=== PATIENT | female | born 1955 | race Caucasian/White ===

== ENCOUNTER 2017-04-30 15:10 | Inpatient (IN) | payer OTHER ==
[2017-04-30] MEDS: HYDROmorphONE 1 MG/ML SYG IV (19:47)
[2017-04-30] MEDS: SOD CHLORIDE 0.9% 1,000 ML IV ×2 (19:47→23:05)
[2017-04-30] MEDS: ONDANSETRON 4 MG INJ IV (19:47)
[2017-04-30 19:51] LABS: ADD MAN DIFF? NO
[2017-04-30 19:53] LABS: BASOPHIL # 0.1 10^3/ul (0.0-0.1); BASOPHILS % 0.5 % (0.0-2.0); EOSINOPHILS % 0.2 % (0.0-7.0); HEMATOCRIT 46.7 % (37.0-47.0); HEMOGLOBIN 15.2 g/dl (12.0-16.0); LYMPHOCYTES # 1.3 10^3/ul (0.8-2.9); MEAN CORPUSCULAR HEMOGLOBIN 27.3 pg (29.0-33.0); MEAN CORPUSCULAR HGB CONC 32.5 g/dl (32.0-37.0); MONOCYTE # 1.1 10^3/ul (0.3-0.9); MONOCYTES % 9.5 % (0.0-11.0); NEUTROPHIL # 9.4 10^3/ul (1.6-7.5); NEUTROPHILS % 78.2 % (39.0-77.0); PLATELET COUNT 604 10^3/UL (140-415); RED BLOOD COUNT 5.56 10^6/ul (4.20-5.40); RED CELL DISTRIBUTION WIDTH 13.3 % (11.5-14.5)
[2017-04-30 20:07] LABS: ADD UMIC YES; UR ASCORBIC ACID NEGATIVE (NEGATIVE); UR BILIRUBIN (Dip) 1+ mg/dL (NEGATIVE); UR BLOOD (Dip) NEGATIVE (NEGATIVE); UR CLARITY CLOUDY (CLEAR); UR COLOR AMBER (YELLOW); UR GLUCOSE (Dip) NEGATIVE (NEGATIVE); UR HYALINE CAST FEW /HPF (NONE SEEN); UR KETONES (Dip) 1+ mg/dL (NEGATIVE); UR LEUKOCYTE ESTERASE (Dip) 1+ Leu/ul (NEGATIVE); UR MUCUS MANY /HPF (NONE SEEN); UR NITRITE (Dip) NEGATIVE (NEGATIVE); UR RBC 6 /HPF (0-5); UR SPECIFIC GRAVITY (Dip) 1.025 (1.003-1.030); UR SQUAMOUS EPITHELIAL CELL FEW /HPF (FEW); UR TOTAL PROTEIN (Dip) 1+ mg/dl (NEGATIVE); UR UROBILINOGEN (Dip) 2+ mg/dL (NEGATIVE); UR WBC 44 /HPF (0-5)
[2017-04-30 20:17] LABS: ALANINE AMINOTRANSFERASE 11 IU/L (13-69); ALBUMIN 4.1 g/dl (3.3-4.9); ALBUMIN/GLOBULIN RATIO 0.93; ALKALINE PHOSPHATASE 72 IU/L (42-121); ANION GAP 25 (8-16); ASPARTATE AMINO TRANSFERASE 45 IU/L (15-46); BILIRUBIN,INDIRECT 0.4 mg/dl (0-1.1); BILIRUBIN,TOTAL 0.4 mg/dl (0.2-1.3); BLOOD UREA NITROGEN 26 mg/dl (7-20); CALCIUM 9.8 mg/dl (8.4-10.2); CARBON DIOXIDE 24 mmol/L (21-31); CHLORIDE 91 mmol/L (97-110); GLUCOSE 112 mg/dl (70-220); LIPASE 123 U/L (23-300); POTASSIUM 4.2 mmol/L (3.5-5.1); SODIUM 136 mmol/L (135-144); TOTAL PROTEIN 8.5 g/dl (6.1-8.1)
[2017-04-30] MEDS ORDERED: METOCLOPRAMIDE 10 MG INJ (20:37)
[2017-04-30] MEDS: METOCLOPRAMIDE 10 MG INJ IV (20:49)
[2017-04-30] MEDS: IODIXANOL LOCM 100 ML BTL (21:04)
[2017-04-30] MEDS: SOD CHLORIDE 0.9% 100 ML (21:04)
[2017-04-30] MEDS: PROCHLORPERAZINE 10 MG INJ IV (22:09)
[2017-04-30] MEDS ORDERED: morphine 2 MG INJ IV (23:00)
[2017-04-30] MEDS ORDERED: ONDANSETRON 4 MG INJ IV (23:00)
[2017-04-30] MEDS ORDERED: ACETAMINOPHEN 325 MG TAB PO (23:00)
[2017-05-01] MEDS: D5W-0.45 NACL + KCL 20 MEQ 1,000 ML IV ×4 (03:18→21:33)
[2017-05-01] MEDS: PANTOPRAZOLE 40 MG INJ IV (05:37)
[2017-05-01] MEDS: METOCLOPRAMIDE 10 MG INJ IV ×4 (05:37→18:17)
[2017-05-01 06:17] LABS: ADD MAN DIFF? NO
[2017-05-01 06:38] LABS: WHITE BLOOD COUNT 9.3 10^3/ul (4.8-10.8)
[2017-05-01 06:38] LABS: BASOPHILS % 0.4 % (0.0-2.0); EOSINOPHILS % 0.3 % (0.0-7.0); HEMATOCRIT 39.9 % (37.0-47.0); HEMOGLOBIN 12.8 g/dl (12.0-16.0); LYMPHOCYTES % 10.2 % (15.0-51.0); MEAN CORPUSCULAR HEMOGLOBIN 27.4 pg (29.0-33.0); MEAN CORPUSCULAR HGB CONC 32.1 g/dl (32.0-37.0); MEAN CORPUSCULAR VOLUME 85.4 fl (82.0-101.0); MEAN PLATELET VOLUME 10.9 fl (7.4-10.4); MONOCYTES % 11.2 % (0.0-11.0); NEUTROPHIL # 7.2 10^3/ul (1.6-7.5); NEUTROPHILS % 77.4 % (39.0-77.0); PLATELET COUNT 565 10^3/UL (140-415); RED BLOOD COUNT 4.67 10^6/ul (4.20-5.40); RED CELL DISTRIBUTION WIDTH 13.5 % (11.5-14.5)
[2017-05-01 07:02] LABS: ANION GAP 19 (8-16); BLOOD UREA NITROGEN 24 mg/dl (7-20); CALCIUM 8.9 mg/dl (8.4-10.2); CARBON DIOXIDE 28 mmol/L (21-31); CHLORIDE 95 mmol/L (97-110); GLUCOSE 122 mg/dl (70-220); POTASSIUM 3.5 mmol/L (3.5-5.1); SODIUM 138 mmol/L (135-144)
[2017-05-01] MEDS: ONDANSETRON 4 MG INJ IV (16:37)
[2017-05-01] MEDS: HYDROmorphONE 0.5 MG/0.5 ML SYG IV ×2 (16:38→21:25)
[2017-05-02] MEDS: METOCLOPRAMIDE 10 MG INJ IV ×4 (01:16→19:01)
[2017-05-02] MEDS: HYDROmorphONE 0.5 MG/0.5 ML SYG IV ×4 (05:27→19:44)
[2017-05-02] MEDS: PANTOPRAZOLE 40 MG INJ IV (05:28)
[2017-05-02 06:27] LABS: ADD MAN DIFF? NO
[2017-05-02] MEDS: D5W-0.45 NACL + KCL 20 MEQ 1,000 ML IV ×2 (06:28→17:35)
[2017-05-02 06:31] LABS: BASOPHILS % 0.6 % (0.0-2.0); EOSINOPHILS # 0.1 10^3/ul (0.0-0.5); HEMATOCRIT 39.7 % (37.0-47.0); HEMOGLOBIN 12.6 g/dl (12.0-16.0); LYMPHOCYTES # 0.7 10^3/ul (0.8-2.9); LYMPHOCYTES % 9.9 % (15.0-51.0); MEAN CORPUSCULAR HEMOGLOBIN 27.3 pg (29.0-33.0); MEAN CORPUSCULAR HGB CONC 31.7 g/dl (32.0-37.0); MEAN CORPUSCULAR VOLUME 86.1 fl (82.0-101.0); MEAN PLATELET VOLUME 11.1 fl (7.4-10.4); MONOCYTE # 0.9 10^3/ul (0.3-0.9); NEUTROPHIL # 5.5 10^3/ul (1.6-7.5); NEUTROPHILS % 76.1 % (39.0-77.0); PLATELET COUNT 512 10^3/UL (140-415); RED BLOOD COUNT 4.61 10^6/ul (4.20-5.40); RED CELL DISTRIBUTION WIDTH 13.5 % (11.5-14.5)
[2017-05-02 06:31] LABS: WHITE BLOOD COUNT 7.3 10^3/ul (4.8-10.8)
[2017-05-02 06:54] LABS: ANION GAP 12 (8-16); BLOOD UREA NITROGEN 16 mg/dl (7-20); CALCIUM 8.8 mg/dl (8.4-10.2); CARBON DIOXIDE 30 mmol/L (21-31); CHLORIDE 99 mmol/L (97-110); CREATININE 0.96 mg/dl (0.44-1.00); GLUCOSE 131 mg/dl (70-220); POTASSIUM 3.6 mmol/L (3.5-5.1); SODIUM 137 mmol/L (135-144)
[2017-05-02] MEDS: ONDANSETRON 4 MG INJ IV (15:21)
[2017-05-03] MEDS: METOCLOPRAMIDE 10 MG INJ IV ×4 (00:11→18:35)
[2017-05-03] MEDS: HYDROmorphONE 0.5 MG/0.5 ML SYG IV ×2 (02:59→06:50)
[2017-05-03] MEDS: D5W-0.45 NACL + KCL 20 MEQ 1,000 ML IV ×3 (04:04→13:39)
[2017-05-03 06:20] LABS: ADD MAN DIFF? NO
[2017-05-03 06:30] LABS: WHITE BLOOD COUNT 7.7 10^3/ul (4.8-10.8)
[2017-05-03 06:30] LABS: BASOPHIL # 0.1 10^3/ul (0.0-0.1); BASOPHILS % 0.8 % (0.0-2.0); EOSINOPHILS # 0.1 10^3/ul (0.0-0.5); EOSINOPHILS % 1.6 % (0.0-7.0); HEMOGLOBIN 12.7 g/dl (12.0-16.0); LYMPHOCYTES % 12.4 % (15.0-51.0); MEAN CORPUSCULAR HEMOGLOBIN 27.3 pg (29.0-33.0); MEAN CORPUSCULAR HGB CONC 31.8 g/dl (32.0-37.0); MEAN PLATELET VOLUME 10.8 fl (7.4-10.4); MONOCYTES % 13.1 % (0.0-11.0); NEUTROPHIL # 5.5 10^3/ul (1.6-7.5); NEUTROPHILS % 71.6 % (39.0-77.0); PLATELET COUNT 525 10^3/UL (140-415); RED BLOOD COUNT 4.65 10^6/ul (4.20-5.40); RED CELL DISTRIBUTION WIDTH 13.7 % (11.5-14.5)
[2017-05-03 07:05] LABS: ANION GAP 12 (8-16); BLOOD UREA NITROGEN 12 mg/dl (7-20); CALCIUM 8.9 mg/dl (8.4-10.2); CARBON DIOXIDE 26 mmol/L (21-31); CHLORIDE 104 mmol/L (97-110); CREATININE 0.84 mg/dl (0.44-1.00); GLUCOSE 128 mg/dl (70-220); POTASSIUM 3.9 mmol/L (3.5-5.1); SODIUM 138 mmol/L (135-144)
[2017-05-03] MEDS: FAMOTIDINE 20 MG INJ IV ×2 (08:47→20:05)
[2017-05-03] MEDS: HYDROmorphONE 1 MG/ML SYG IV ×3 (11:36→20:07)
[2017-05-03] MEDS: LORAZEPAM 2 MG INJ IV (20:05)
[2017-05-03] MEDS: ONDANSETRON 4 MG INJ IV (20:09)
[2017-05-04] MEDS: METOCLOPRAMIDE 10 MG INJ IV ×4 (00:12→17:56)
[2017-05-04] MEDS: D5W-0.45 NACL + KCL 20 MEQ 1,000 ML IV ×3 (00:12→20:51)
[2017-05-04 06:05] LABS: ADD MAN DIFF? NO
[2017-05-04 06:33] LABS: ANION GAP 11 (8-16); BLOOD UREA NITROGEN 11 mg/dl (7-20); CALCIUM 9.1 mg/dl (8.4-10.2); CARBON DIOXIDE 26 mmol/L (21-31); CHLORIDE 104 mmol/L (97-110); CREATININE 0.92 mg/dl (0.44-1.00); GLUCOSE 120 mg/dl (70-220); POTASSIUM 4.5 mmol/L (3.5-5.1); SODIUM 136 mmol/L (135-144)
[2017-05-04 09:06] LABS: WHITE BLOOD COUNT 8.5 10^3/ul (4.8-10.8)
[2017-05-04 09:06] LABS: BASOPHIL # 0.1 10^3/ul (0.0-0.1); BASOPHILS % 0.7 % (0.0-2.0); EOSINOPHILS # 0.1 10^3/ul (0.0-0.5); EOSINOPHILS % 1.6 % (0.0-7.0); HEMOGLOBIN 12.9 g/dl (12.0-16.0); LYMPHOCYTES # 0.9 10^3/ul (0.8-2.9); MEAN CORPUSCULAR HEMOGLOBIN 27.5 pg (29.0-33.0); MEAN CORPUSCULAR HGB CONC 31.5 g/dl (32.0-37.0); MEAN CORPUSCULAR VOLUME 87.4 fl (82.0-101.0); MEAN PLATELET VOLUME 11.2 fl (7.4-10.4); MONOCYTES % 12.2 % (0.0-11.0); NEUTROPHIL # 6.3 10^3/ul (1.6-7.5); PLATELET COUNT 507 10^3/UL (140-415); RED BLOOD COUNT 4.69 10^6/ul (4.20-5.40); RED CELL DISTRIBUTION WIDTH 13.9 % (11.5-14.5)
[2017-05-04] MEDS: FAMOTIDINE 20 MG INJ IV ×2 (09:15→20:51)
[2017-05-04] MEDS: ENOXAPARIN 30 MG/0.3 ML SYG SC (09:26)
[2017-05-04] MEDS: HYDROmorphONE 1 MG/ML SYG IV ×3 (11:18→22:22)
[2017-05-05] MEDS: METOCLOPRAMIDE 10 MG INJ IV ×5 (00:09→23:47)
[2017-05-05] MEDS: HYDROmorphONE 1 MG/ML SYG IV ×5 (04:34→22:23)
[2017-05-05 05:18] LABS: ADD MAN DIFF? NO
[2017-05-05 05:23] LABS: BASOPHIL # 0.1 10^3/ul (0.0-0.1); BASOPHILS % 0.8 % (0.0-2.0); EOSINOPHILS # 0.1 10^3/ul (0.0-0.5); EOSINOPHILS % 1.7 % (0.0-7.0); HEMATOCRIT 39.5 % (37.0-47.0); HEMOGLOBIN 12.3 g/dl (12.0-16.0); LYMPHOCYTES # 0.8 10^3/ul (0.8-2.9); LYMPHOCYTES % 10.5 % (15.0-51.0); MEAN CORPUSCULAR HEMOGLOBIN 27.3 pg (29.0-33.0); MEAN CORPUSCULAR HGB CONC 31.1 g/dl (32.0-37.0); MEAN CORPUSCULAR VOLUME 87.8 fl (82.0-101.0); MEAN PLATELET VOLUME 10.8 fl (7.4-10.4); MONOCYTE # 1.1 10^3/ul (0.3-0.9); MONOCYTES % 13.7 % (0.0-11.0); NEUTROPHIL # 5.6 10^3/ul (1.6-7.5); NEUTROPHILS % 72.8 % (39.0-77.0); PLATELET COUNT 445 10^3/UL (140-415); RED CELL DISTRIBUTION WIDTH 14.2 % (11.5-14.5)
[2017-05-05 05:23] LABS: WHITE BLOOD COUNT 7.7 10^3/ul (4.8-10.8)
[2017-05-05 06:09] LABS: ANION GAP 11 (8-16); BLOOD UREA NITROGEN 10 mg/dl (7-20); CALCIUM 9.2 mg/dl (8.4-10.2); CARBON DIOXIDE 28 mmol/L (21-31); CHLORIDE 104 mmol/L (97-110); CREATININE 0.92 mg/dl (0.44-1.00); GLUCOSE 115 mg/dl (70-220); POTASSIUM 5.2 mmol/L (3.5-5.1); SODIUM 138 mmol/L (135-144)
[2017-05-05] MEDS: D5W-0.45 NACL + KCL 20 MEQ 1,000 ML IV ×3 (06:28→16:26)
[2017-05-05] MEDS: FAMOTIDINE 20 MG INJ IV ×2 (08:38→19:55)
[2017-05-05] MEDS: ENOXAPARIN 30 MG/0.3 ML SYG SC (08:46)
[2017-05-05] MEDS: HYDROmorphONE 0.5 MG/0.5 ML SYG IV (14:42)
[2017-05-05] MEDS: LORAZEPAM 2 MG INJ IV (22:23)
[2017-05-06] MEDS: METOCLOPRAMIDE 10 MG INJ IV ×3 (05:30→17:51)
[2017-05-06] MEDS: D5W-0.45 NACL + KCL 20 MEQ 1,000 ML IV (05:30)
[2017-05-06] MEDS: FAMOTIDINE 20 MG INJ IV ×2 (09:13→20:32)
[2017-05-06] MEDS: HYDROmorphONE 1 MG/ML SYG IV ×4 (09:13→21:54)
[2017-05-06] MEDS: ENOXAPARIN 30 MG/0.3 ML SYG SC (09:13)
[2017-05-06] MEDS: DEXTROSE 5%-0.45% NACL 1,000 ML IV (17:51)
[2017-05-06 20:03] LABS: ANION GAP 13 (8-16); BLOOD UREA NITROGEN 9 mg/dl (7-20); CALCIUM 9.1 mg/dl (8.4-10.2); CARBON DIOXIDE 22 mmol/L (21-31); CHLORIDE 105 mmol/L (97-110); CREATININE 0.81 mg/dl (0.44-1.00); GLUCOSE 105 mg/dl (70-220); POTASSIUM 5.9 mmol/L (3.5-5.1); SODIUM 134 mmol/L (135-144)
[2017-05-07] MEDS: LORAZEPAM 2 MG INJ IV (02:39)
[2017-05-07] MEDS: HYDROmorphONE 1 MG/ML SYG IV ×3 (05:14→19:56)
[2017-05-07] MEDS: METOCLOPRAMIDE 10 MG INJ IV ×4 (05:14→18:10)
[2017-05-07 05:23] LABS: ADD MAN DIFF? NO
[2017-05-07 05:28] LABS: BASOPHIL # 0.1 10^3/ul (0.0-0.1); BASOPHILS % 0.6 % (0.0-2.0); EOSINOPHILS # 0.1 10^3/ul (0.0-0.5); EOSINOPHILS % 1.1 % (0.0-7.0); HEMATOCRIT 37.8 % (37.0-47.0); LYMPHOCYTES # 0.6 10^3/ul (0.8-2.9); LYMPHOCYTES % 6.7 % (15.0-51.0); MEAN CORPUSCULAR HEMOGLOBIN 27.2 pg (29.0-33.0); MEAN CORPUSCULAR HGB CONC 31.7 g/dl (32.0-37.0); MEAN CORPUSCULAR VOLUME 85.7 fl (82.0-101.0); MONOCYTE # 1.2 10^3/ul (0.3-0.9); MONOCYTES % 12.9 % (0.0-11.0); NEUTROPHIL # 7.3 10^3/ul (1.6-7.5); NEUTROPHILS % 78.4 % (39.0-77.0); PLATELET COUNT 457 10^3/UL (140-415); RED BLOOD COUNT 4.41 10^6/ul (4.20-5.40); RED CELL DISTRIBUTION WIDTH 13.8 % (11.5-14.5)
[2017-05-07 05:28] LABS: WHITE BLOOD COUNT 9.4 10^3/ul (4.8-10.8)
[2017-05-07 05:49] LABS: INR 1.12; PROTIME 14.6 Sec (11.9-14.9); PT RATIO 1.1
[2017-05-07 06:16] LABS: ALANINE AMINOTRANSFERASE 32 IU/L (13-69); ALBUMIN 2.6 g/dl (3.3-4.9); ALBUMIN/GLOBULIN RATIO 0.72; ALKALINE PHOSPHATASE 72 IU/L (42-121); ANION GAP 11 (8-16); ASPARTATE AMINO TRANSFERASE 28 IU/L (15-46); BILIRUBIN,INDIRECT 0.3 mg/dl (0-1.1); BILIRUBIN,TOTAL 0.3 mg/dl (0.2-1.3); BLOOD UREA NITROGEN 9 mg/dl (7-20); CALCIUM 9.3 mg/dl (8.4-10.2); CARBON DIOXIDE 25 mmol/L (21-31); CHLORIDE 104 mmol/L (97-110); CREATININE 0.87 mg/dl (0.44-1.00); GLUCOSE 105 mg/dl (70-220); POTASSIUM 5.1 mmol/L (3.5-5.1); SODIUM 135 mmol/L (135-144); TOTAL PROTEIN 6.2 g/dl (6.1-8.1)
[2017-05-07] MEDS: ENOXAPARIN 30 MG/0.3 ML SYG SC (08:34)
[2017-05-07] MEDS: PEG/ELECTROLYTES 4L BTL PO (08:36)
[2017-05-07] MEDS: FAMOTIDINE 20 MG INJ IV ×2 (08:44→19:57)
[2017-05-07] MEDS: DEXTROSE 5%-0.45% NACL 1,000 ML IV ×2 (10:50→14:04)
[2017-05-07] MEDS: ONDANSETRON 4 MG INJ IV (19:56)
[2017-05-08] MEDS: DEXTROSE 5%-0.45% NACL 1,000 ML IV ×2 (00:33→16:31)
[2017-05-08] MEDS: METOCLOPRAMIDE 10 MG INJ IV ×4 (00:33→17:29)
[2017-05-08] MEDS: LORAZEPAM 2 MG INJ IV (00:45)
[2017-05-08] MEDS: ONDANSETRON 4 MG INJ IV (03:16)
[2017-05-08 05:04] LABS: ADD MAN DIFF? NO
[2017-05-08 05:17] LABS: WHITE BLOOD COUNT 9.6 10^3/ul (4.8-10.8)
[2017-05-08 05:17] LABS: ABNORMAL IP MESSAGE 1; BASOPHILS % 0.4 % (0.0-2.0); EOSINOPHILS # 0.1 10^3/ul (0.0-0.5); EOSINOPHILS % 0.8 % (0.0-7.0); HEMATOCRIT 37.6 % (37.0-47.0); HEMOGLOBIN 12.1 g/dl (12.0-16.0); LYMPHOCYTES # 0.8 10^3/ul (0.8-2.9); MEAN CORPUSCULAR HEMOGLOBIN 27.3 pg (29.0-33.0); MEAN CORPUSCULAR HGB CONC 32.2 g/dl (32.0-37.0); MEAN CORPUSCULAR VOLUME 84.9 fl (82.0-101.0); MONOCYTE # 1.5 10^3/ul (0.3-0.9); MONOCYTES % 15.9 % (0.0-11.0); NEUTROPHIL # 7.1 10^3/ul (1.6-7.5); NEUTROPHILS % 74.5 % (39.0-77.0); PLATELET COUNT 443 10^3/UL (140-415); RED BLOOD COUNT 4.43 10^6/ul (4.20-5.40); RED CELL DISTRIBUTION WIDTH 14.1 % (11.5-14.5)
[2017-05-08 05:18] LABS: PLATELET COUNT 447 10^3/UL (140-415)
[2017-05-08 05:25] LABS: POSITIVE DIFF @See below
[2017-05-08] MEDS ORDERED: VITAMIN A & D 5 GM OINT PACKET TOP (05:26)
[2017-05-08 05:54] LABS: ANION GAP 12 (8-16); BLOOD UREA NITROGEN 10 mg/dl (7-20); CALCIUM 9.2 mg/dl (8.4-10.2); CARBON DIOXIDE 25 mmol/L (21-31); CHLORIDE 104 mmol/L (97-110); CREATININE 1.02 mg/dl (0.44-1.00); GLUCOSE 105 mg/dl (70-220); POTASSIUM 5.2 mmol/L (3.5-5.1); SODIUM 136 mmol/L (135-144)
[2017-05-08] MEDS: HYDROmorphONE 1 MG/ML SYG IV ×2 (05:56→17:27)
[2017-05-08 06:05] LABS: INR 1.16; PT RATIO 1.2
[2017-05-08 06:06] LABS: PARTIAL THROMBOPLASTIN TIME 36.9 Sec (25.0-35.0); THROMBIN TIME 15.1 SEC (13.8-19.1)
[2017-05-08] MEDS: FAMOTIDINE 20 MG INJ IV ×2 (12:10→21:00)
[2017-05-08] MEDS: ENOXAPARIN 30 MG/0.3 ML SYG SC (12:13)
[2017-05-09 05:18] LABS: ADD MAN DIFF? NO
[2017-05-09 05:22] LABS: BASOPHIL # 0.1 10^3/ul (0.0-0.1); BASOPHILS % 0.5 % (0.0-2.0); EOSINOPHILS # 0.1 10^3/ul (0.0-0.5); EOSINOPHILS % 0.7 % (0.0-7.0); HEMATOCRIT 37.5 % (37.0-47.0); LYMPHOCYTES # 0.7 10^3/ul (0.8-2.9); LYMPHOCYTES % 7.5 % (15.0-51.0); MEAN CORPUSCULAR HEMOGLOBIN 27.2 pg (29.0-33.0); MEAN PLATELET VOLUME 10.7 fl (7.4-10.4); MONOCYTE # 1.2 10^3/ul (0.3-0.9); MONOCYTES % 12.6 % (0.0-11.0); NEUTROPHIL # 7.7 10^3/ul (1.6-7.5); NEUTROPHILS % 78.3 % (39.0-77.0); PLATELET COUNT 444 10^3/UL (140-415); RED BLOOD COUNT 4.41 10^6/ul (4.20-5.40); RED CELL DISTRIBUTION WIDTH 14.1 % (11.5-14.5)
[2017-05-09 05:22] LABS: WHITE BLOOD COUNT 9.9 10^3/ul (4.8-10.8)
[2017-05-09 05:47] LABS: ANION GAP 16 (8-16); BLOOD UREA NITROGEN 12 mg/dl (7-20); CALCIUM 9.3 mg/dl (8.4-10.2); CARBON DIOXIDE 21 mmol/L (21-31); CHLORIDE 104 mmol/L (97-110); CREATININE 0.91 mg/dl (0.44-1.00); GLUCOSE 91 mg/dl (70-220); POTASSIUM 4.8 mmol/L (3.5-5.1); SODIUM 136 mmol/L (135-144)
[2017-05-09] MEDS: HYDROmorphONE 1 MG/ML SYG IV (06:17)
[2017-05-09] MEDS: METOCLOPRAMIDE 10 MG INJ IV ×5 (06:17→23:07)
[2017-05-09] MEDS: FAMOTIDINE 20 MG INJ IV ×2 (10:32→20:22)
[2017-05-09] MEDS: ENOXAPARIN 30 MG/0.3 ML SYG SC (10:37)
[2017-05-09] MEDS: DEXTROSE 5%-0.9% NACL 1,000 ML IV (20:22)
[2017-05-10 01:24] LABS: INR 1.22; PROTIME 15.6 Sec (11.9-14.9); PT RATIO 1.2
[2017-05-10 05:09] LABS: ADD MAN DIFF? NO
[2017-05-10 05:12] LABS: BASOPHILS % 0.4 % (0.0-2.0); EOSINOPHILS % 0.4 % (0.0-7.0); HEMATOCRIT 38.7 % (37.0-47.0); HEMOGLOBIN 12.1 g/dl (12.0-16.0); LYMPHOCYTES # 0.8 10^3/ul (0.8-2.9); LYMPHOCYTES % 8.3 % (15.0-51.0); MEAN CORPUSCULAR HEMOGLOBIN 26.7 pg (29.0-33.0); MEAN CORPUSCULAR HGB CONC 31.3 g/dl (32.0-37.0); MEAN CORPUSCULAR VOLUME 85.2 fl (82.0-101.0); MEAN PLATELET VOLUME 11.1 fl (7.4-10.4); MONOCYTE # 1.3 10^3/ul (0.3-0.9); MONOCYTES % 13.1 % (0.0-11.0); NEUTROPHIL # 7.8 10^3/ul (1.6-7.5); NEUTROPHILS % 77.4 % (39.0-77.0); PLATELET COUNT 447 10^3/UL (140-415); RED BLOOD COUNT 4.54 10^6/ul (4.20-5.40); RED CELL DISTRIBUTION WIDTH 14.3 % (11.5-14.5)
[2017-05-10] MEDS: METOCLOPRAMIDE 10 MG INJ IV ×2 (05:35→12:00)
[2017-05-10 05:43] LABS: ANION GAP 15 (8-16); BLOOD UREA NITROGEN 13 mg/dl (7-20); CALCIUM 9.2 mg/dl (8.4-10.2); CARBON DIOXIDE 23 mmol/L (21-31); CHLORIDE 106 mmol/L (97-110); CREATININE 0.86 mg/dl (0.44-1.00); GLUCOSE 108 mg/dl (70-220); POTASSIUM 4.9 mmol/L (3.5-5.1); SODIUM 139 mmol/L (135-144)
[2017-05-10] MEDS ORDERED: CEFAZOLIN 1 GM INJ (07:00)
[2017-05-10] MEDS: ENOXAPARIN 30 MG/0.3 ML SYG SC (09:00)
[2017-05-10] MEDS ORDERED: METOCLOPRAMIDE 10 MG INJ IV ×2 (09:00→16:00)
[2017-05-10] MEDS ORDERED: hydrALAzine 20 MG INJ IV (09:00)
[2017-05-10] MEDS ORDERED: LABETALOL HCL 20MG INJ IV (09:00)
[2017-05-10] MEDS ORDERED: DIPHENHYDRAMINE 50 MG INJ IV ×2 (09:00→16:00)
[2017-05-10] MEDS ORDERED: ONDANSETRON 4 MG INJ IV (09:00)
[2017-05-10] MEDS ORDERED: FENTAnyl 50 MCG/ML VIAL IV (09:00)
[2017-05-10] MEDS: FAMOTIDINE 20 MG INJ IV ×2 (09:01→22:48)
[2017-05-10] MEDS ORDERED: VASOPRESSIN 20 UNITS INJ (09:05)
[2017-05-10] MEDS ORDERED: METHYLENE BLUE 1% 10 ML INJ (09:54)
[2017-05-10] MEDS ORDERED: MIDAZOLAM 1 MG/ML 2 ML INJ ×3 (10:13→15:25)
[2017-05-10] MEDS ORDERED: morphine SULFATE/PF (10 MG/10 ML) INJ (10:15)
[2017-05-10] MEDS ORDERED: PHENYLephrine (100 MCG/ML) 5ML SYG ×3 (10:16→12:25)
[2017-05-10] MEDS: DEXTROSE 5%-0.9% NACL 1,000 ML IV (11:18)
[2017-05-10] MEDS ORDERED: FUROSEMIDE 20 MG INJ (13:02)
[2017-05-10] MEDS: HEMOSTATIC MATRIX SYG ZFS (14:30)
[2017-05-10] MEDS: THROMBIN 5000 UNIT VIAL (14:30)
[2017-05-10] MEDS ORDERED: LIDOCAINE 2% (SDV) 5 ML INJ (15:27)
[2017-05-10] MEDS ORDERED: ROCURONIUM 50 MG INJ (15:27)
[2017-05-10] MEDS ORDERED: PROPOFOL 20 ML (15:27)
[2017-05-10] MEDS ORDERED: CEFAZOLIN 1 GM in SOD CHLORIDE 0.9% 100 ML IVPB (15:30)
[2017-05-10] MEDS ORDERED: NALOXONE (0.4 MG/ML) INJ IV (16:00)
[2017-05-10] MEDS ORDERED: HYDROmorphONE (0.2 MG/ML) 10ML SYG IV (16:00)
[2017-05-10] MEDS ORDERED: metroNIDAZOLE 500 MG/NS (PMX) 100 ML IVPB (16:22)
[2017-05-10] MEDS: CEFAZOLIN 1 GM/50 ML (PMX) 50 ML IVPB (16:39)
[2017-05-10] MEDS: MEPERIDINE 25 MG INJ IV (16:50)
[2017-05-10] MEDS: metroNIDAZOLE 500 MG/NS (PMX) 100 ML IVPB (16:52)
[2017-05-10] MEDS ORDERED: CEFAZOLIN 1 GM/50 ML (PMX) 50 ML IVPB (17:00)
[2017-05-10] MEDS: ALBUMIN HUMAN 5% 250 ML IV ×3 (17:02→23:06)
[2017-05-10 17:17] LABS: ADD MAN DIFF? NO
[2017-05-10 17:25] LABS: BASOPHILS % 0.2 % (0.0-2.0); HEMATOCRIT 38.6 % (37.0-47.0); HEMOGLOBIN 12.6 g/dl (12.0-16.0); LYMPHOCYTES # 0.6 10^3/ul (0.8-2.9); LYMPHOCYTES % 5.1 % (15.0-51.0); MEAN CORPUSCULAR HEMOGLOBIN 27.4 pg (29.0-33.0); MEAN CORPUSCULAR HGB CONC 32.6 g/dl (32.0-37.0); MEAN CORPUSCULAR VOLUME 83.9 fl (82.0-101.0); MONOCYTE # 1.2 10^3/ul (0.3-0.9); MONOCYTES % 9.6 % (0.0-11.0); NEUTROPHIL # 10.2 10^3/ul (1.6-7.5); NEUTROPHILS % 84.6 % (39.0-77.0); PLATELET COUNT 306 10^3/UL (140-415); RED CELL DISTRIBUTION WIDTH 14.3 % (11.5-14.5)
[2017-05-10 17:43] LABS: ANION GAP 8 (8-16); BLOOD UREA NITROGEN 11 mg/dl (7-20); CALCIUM 7.2 mg/dl (8.4-10.2); CARBON DIOXIDE 25 mmol/L (21-31); CHLORIDE 107 mmol/L (97-110); CREATININE 0.65 mg/dl (0.44-1.00); GLUCOSE 167 mg/dl (70-220); POTASSIUM 3.5 mmol/L (3.5-5.1); SODIUM 136 mmol/L (135-144)
[2017-05-10] MEDS: POTASSIUM CHLORIDE 20 MEQ in LACTATED RINGER'S 990 ML IV (17:46)
[2017-05-10] MEDS: ONDANSETRON 4 MG INJ IV (17:59)
[2017-05-10] MEDS: FENTAnyl 50 MCG/ML VIAL IV ×2 (17:59→19:18)
[2017-05-10 18:23] LABS: AADO2 Arterial 91.3 mmHg (7.0-24.0); Arterial Blood Gas Oxygen Sat 98.7 mmHG (95.0-98.0); Arterial COHb 0.3 % (0.0-3.0); Arterial Fraction of Oxyhgb 98.4 % (93.0-99.0); Arterial HCO3 18.5 mmol/L (22.0-26.0); Arterial MetHb 0 % (0.0-1.5); Arterial Total Hemglobin 12.9 g/dl (12.0-18.0); Arterial pCO2 33.5 mmhg (35-45); Blood Gas PS 8; MODE vent-simv/ps; Site A-Line
[2017-05-10] MEDS: EPHEDrine SULFATE 50 MG/5 ML SYG IV (20:15)
[2017-05-10] MEDS: LORAZEPAM 2 MG INJ IV ×2 (20:24→23:04)
[2017-05-10] MEDS: HYDROmorphONE (0.2 MG/ML) 10ML SYG IV (21:43)
[2017-05-11] MEDS: metroNIDAZOLE 500 MG/NS (PMX) 100 ML IVPB ×2 (00:27→08:27)
[2017-05-11] MEDS: POTASSIUM CHLORIDE 20 MEQ in LACTATED RINGER'S 990 ML IV ×4 (00:37→19:10)
[2017-05-11] MEDS: CEFAZOLIN 1 GM/50 ML (PMX) 50 ML IVPB ×2 (03:33→10:27)
[2017-05-11 05:10] LABS: Arterial Blood Gas Oxygen Sat 99.1 mmHG (95.0-98.0); Arterial COHb 0.3 % (0.0-3.0); Arterial Fraction of Oxyhgb 98.7 % (93.0-99.0); Arterial MetHb 0.1 % (0.0-1.5); Arterial Total Hemglobin 10.1 g/dl (12.0-18.0); Arterial pCO2 31.1 mmhg (35-45); Blood Gas PS 10; MODE VENT - SIMV; Site A-Line
[2017-05-11 05:48] LABS: WHITE BLOOD COUNT 14.9 10^3/ul (4.8-10.8)
[2017-05-11 05:48] LABS: HEMATOCRIT 28.7 % (37.0-47.0); HEMOGLOBIN 9.4 g/dl (12.0-16.0); MEAN CORPUSCULAR HEMOGLOBIN 27.4 pg (29.0-33.0); MEAN CORPUSCULAR HGB CONC 32.8 g/dl (32.0-37.0); MEAN CORPUSCULAR VOLUME 83.7 fl (82.0-101.0); MEAN PLATELET VOLUME 11.3 fl (7.4-10.4); NUCLEATED RED BLOOD CELLS% 0.1 /100WBC (0.0-0.0); PLATELET COUNT 268 10^3/UL (140-415); RED BLOOD COUNT 3.43 10^6/ul (4.20-5.40); RED CELL DISTRIBUTION WIDTH 14.3 % (11.5-14.5)
[2017-05-11] MEDS: NORepinephrine 8MG/250 ML (PMX 250 ML IV (05:49)
[2017-05-11 06:04] LABS: INR 1.71; PROTIME 20.4 Sec (11.9-14.9); PT RATIO 1.6
[2017-05-11 06:14] LABS: LACTIC ACID 1.1 mmol/L (0.5-2.0)
[2017-05-11 06:17] LABS: ALANINE AMINOTRANSFERASE 38 IU/L (13-69); ALBUMIN 1.5 g/dl (3.3-4.9); ALBUMIN/GLOBULIN RATIO 0.93; ALKALINE PHOSPHATASE 21 IU/L (42-121); ANION GAP 13 (8-16); ASPARTATE AMINO TRANSFERASE 30 IU/L (15-46); BILIRUBIN,INDIRECT 0.3 mg/dl (0-1.1); BILIRUBIN,TOTAL 0.3 mg/dl (0.2-1.3); CARBON DIOXIDE 18 mmol/L (21-31); CHLORIDE 119 mmol/L (97-110); GLUCOSE 81 mg/dl (70-220); TOTAL PROTEIN 3.1 g/dl (6.1-8.1)
[2017-05-11 06:25] LABS: ADD MAN DIFF? YES; HOLD TRANSMISSIONS 1; POSITIVE DIFF @See below
[2017-05-11 06:41] LABS: BLOOD UREA NITROGEN 9 mg/dl (7-20); CREATININE 0.65 mg/dl (0.44-1.00); POTASSIUM 3.5 mmol/L (3.5-5.1); SODIUM 146 mmol/L (135-144)
[2017-05-11 06:44] LABS: CALCIUM 5.9 mg/dl (8.4-10.2)
[2017-05-11] MEDS: LORAZEPAM 2 MG INJ IV ×3 (07:54→14:05)
[2017-05-11] MEDS: POTASSIUM CHLORIDE 30 MEQ in DEXTROSE 5% 250 ML IVPB (09:40)
[2017-05-11 09:55] LABS: ANISOCYTOSIS 1+ (0-0); BAND NEUTROPHILS #M 4.7 10^3/ul (0.0-0.6); BAND NEUTROPHILS % (M) 32 % (0-4); GIANT THROMBO% (M) 1 % (0-0); MICROCYTOSIS 1+ (0-0); MONOCYTE #M 0.7 10^3/ul (0.3-0.9); MONOCYTES % (M) 5 % (0-11); PLATELET ESTIMATE NORMAL; POIKILOCYTOSIS 3+ (0-0); POLYCHROMASIA 2+ (0-0); REACTIVE LYMPHOCYTES #M 0.2 10^3/ul (0.0-0.0); REACTIVE LYMPHOCYTES% (M) 2 % (0-0); SEG NEUT #M 9.8 10^3/ul (1.7-7.5); SEGMENTED NEUTROPHILS (M) % 61 % (39-77); SMUDGE%M 11 % (0-0)
[2017-05-11] MEDS: morphine 2 MG INJ IV ×2 (10:05→12:16)
[2017-05-11] MEDS: SOD CHLORIDE 0.9% 1,000 ML IV (10:13)
[2017-05-11] MEDS: FAMOTIDINE 20 MG INJ IV ×2 (10:27→21:00)
[2017-05-11] MEDS ORDERED: ALBUMIN HUMAN 5% 250 ML (11:39)
[2017-05-11] MEDS: ALBUMIN HUMAN 5% 250 ML IV (12:02)
[2017-05-11] MEDS: CALCIUM GLUCONATE 10% 1 GM in SOD CHLORIDE 0.9% 100 ML IVPB (12:52)
[2017-05-11] MEDS: SOD CHLORIDE 0.9% 250 ML IV* (12:53)
[2017-05-11] MEDS: MAGNESIUM SULFATE 4 GM/100 ML 100 ML IVPB (12:54)
[2017-05-11 15:38] LABS: ALANINE AMINOTRANSFERASE 41 IU/L (13-69); ALBUMIN 1.9 g/dl (3.3-4.9); ALBUMIN/GLOBULIN RATIO 0.86; ALKALINE PHOSPHATASE 32 IU/L (42-121); ANION GAP 10 (8-16); ASPARTATE AMINO TRANSFERASE 41 IU/L (15-46); BILIRUBIN,INDIRECT 0.3 mg/dl (0-1.1); BILIRUBIN,TOTAL 0.3 mg/dl (0.2-1.3); BLOOD UREA NITROGEN 10 mg/dl (7-20); CALCIUM 7.7 mg/dl (8.4-10.2); CARBON DIOXIDE 23 mmol/L (21-31); CHLORIDE 113 mmol/L (97-110); CREATININE 0.75 mg/dl (0.44-1.00); GLUCOSE 76 mg/dl (70-220); POTASSIUM 4.2 mmol/L (3.5-5.1); SODIUM 142 mmol/L (135-144); TOTAL PROTEIN 4.1 g/dl (6.1-8.1)
[2017-05-11 16:18] LABS: IMMEDIATE SPIN CROSSMATCH 1 4
[2017-05-11] MEDS: PROPOFOL 100 ML IV (16:37)
[2017-05-12] MEDS: PROPOFOL 100 ML IV ×3 (00:12→22:25)
[2017-05-12] MEDS: POTASSIUM CHLORIDE 20 MEQ in LACTATED RINGER'S 990 ML IV ×4 (02:22→22:22)
[2017-05-12 05:30] LABS: ADD MAN DIFF? NO
[2017-05-12 05:47] LABS: WHITE BLOOD COUNT 20.6 10^3/ul (4.8-10.8)
[2017-05-12 05:47] LABS: ABNORMAL IP MESSAGE 1; BASOPHIL # 0.1 10^3/ul (0.0-0.1); BASOPHILS % 0.2 % (0.0-2.0); EOSINOPHILS # 0.2 10^3/ul (0.0-0.5); EOSINOPHILS % 0.7 % (0.0-7.0); HEMATOCRIT 28.9 % (37.0-47.0); HEMOGLOBIN 9.5 g/dl (12.0-16.0); LYMPHOCYTES # 0.9 10^3/ul (0.8-2.9); LYMPHOCYTES % 4.2 % (15.0-51.0); MEAN CORPUSCULAR HEMOGLOBIN 28.1 pg (29.0-33.0); MEAN CORPUSCULAR HGB CONC 32.9 g/dl (32.0-37.0); MEAN CORPUSCULAR VOLUME 85.5 fl (82.0-101.0); MEAN PLATELET VOLUME 11.8 fl (7.4-10.4); MONOCYTE # 1.6 10^3/ul (0.3-0.9); MONOCYTES % 7.6 % (0.0-11.0); NEUTROPHIL # 17.8 10^3/ul (1.6-7.5); NEUTROPHILS % 86.6 % (39.0-77.0); PLATELET COUNT 218 10^3/UL (140-415); RED BLOOD COUNT 3.38 10^6/ul (4.20-5.40); RED CELL DISTRIBUTION WIDTH 14.6 % (11.5-14.5)
[2017-05-12 06:07] LABS: ANION GAP 9 (8-16); BLOOD UREA NITROGEN 9 mg/dl (7-20); CALCIUM 7.7 mg/dl (8.4-10.2); CARBON DIOXIDE 24 mmol/L (21-31); CHLORIDE 113 mmol/L (97-110); CREATININE 0.68 mg/dl (0.44-1.00); GLUCOSE 74 mg/dl (70-220); MAGNESIUM 2.2 mg/dl (1.7-2.5); SODIUM 142 mmol/L (135-144)
[2017-05-12 06:10] LABS: PHOSPHORUS 3.1 mg/dl (2.5-4.9)
[2017-05-12 06:17] LABS: POSITIVE DIFF @See below
[2017-05-12 07:06] LABS: IONIZED CALCIUM 1.2 mmol/L (1.1-1.4)
[2017-05-12] MEDS: morphine 2 MG INJ IV ×2 (08:33→12:18)
[2017-05-12] MEDS: FAMOTIDINE 20 MG INJ IV ×2 (08:33→22:22)
[2017-05-12 10:33] LABS: AADO2 Arterial 83.4 mmHg (7.0-24.0); Allen Test ACCEPTAB; Arterial Base Excess -3.8 mmol/L (-3.0-3); Arterial COHb 0.3 % (0.0-3.0); Arterial Fraction of Oxyhgb 96.6 % (93.0-99.0); Arterial HCO3 19.7 mmol/L (22.0-26.0); Arterial MetHb 0.1 % (0.0-1.5); Arterial Total Hemglobin 11.7 g/dl (12.0-18.0); Arterial pCO2 30.8 mmhg (35-45); MODE VENT - AC; Site Right Radial
[2017-05-12 10:46] LABS: ANISOCYTOSIS 2+ (0-0); BAND NEUTROPHILS #M 1.8 10^3/ul (0.0-0.6); BAND NEUTROPHILS % (M) 9 % (0-4); EOSINOPHILS % (M) 1 % (0-7); GIANT THROMBO% (M) 2 % (0-0); LYMPHOCYTES #M 0.2 10^3/ul (0.8-2.9); LYMPHOCYTES % (M) 1 % (15-51); MICROCYTOSIS 2+ (0-0); MONOCYTE #M 0.4 10^3/ul (0.3-0.9); MONOCYTES % (M) 2 % (0-11); PLATELET ESTIMATE NORMAL; POIKILOCYTOSIS 3+ (0-0); POLYCHROMASIA 3+ (0-0); SEG NEUT #M 18.3 10^3/ul (1.7-7.5); SEGMENTED NEUTROPHILS (M) % 87 % (39-77); SMUDGE%M 6 % (0-0)
[2017-05-12] MEDS ORDERED: FENTAnyl (DRIP) 1000 mcg/100mL 100 ML IV (16:00)
[2017-05-12] MEDS: FENTAnyl (DRIP) 1000 mcg/100mL 100 ML IV (16:31)
[2017-05-13 04:36] LABS: ADD MAN DIFF? NO
[2017-05-13 04:41] LABS: ABNORMAL IP MESSAGE 1; BASOPHIL # 0.1 10^3/ul (0.0-0.1); BASOPHILS % 0.3 % (0.0-2.0); EOSINOPHILS # 0.3 10^3/ul (0.0-0.5); EOSINOPHILS % 1.3 % (0.0-7.0); HEMATOCRIT 31.1 % (37.0-47.0); HEMOGLOBIN 10.2 g/dl (12.0-16.0); LYMPHOCYTES # 0.9 10^3/ul (0.8-2.9); MEAN CORPUSCULAR HEMOGLOBIN 28.2 pg (29.0-33.0); MEAN CORPUSCULAR HGB CONC 32.8 g/dl (32.0-37.0); MEAN CORPUSCULAR VOLUME 85.9 fl (82.0-101.0); MEAN PLATELET VOLUME 11.6 fl (7.4-10.4); MONOCYTE # 1.5 10^3/ul (0.3-0.9); MONOCYTES % 6.4 % (0.0-11.0); NEUTROPHIL # 20.1 10^3/ul (1.6-7.5); NEUTROPHILS % 87.3 % (39.0-77.0); NUCLEATED RED BLOOD CELLS% 0.1 /100WBC (0.0-0.0); PLATELET COUNT 240 10^3/UL (140-415); RED BLOOD COUNT 3.62 10^6/ul (4.20-5.40); RED CELL DISTRIBUTION WIDTH 14.7 % (11.5-14.5)
[2017-05-13 04:58] LABS: POSITIVE DIFF @See below
[2017-05-13 05:12] LABS: ANION GAP 9 (8-16); BLOOD UREA NITROGEN 10 mg/dl (7-20); CARBON DIOXIDE 24 mmol/L (21-31); CHLORIDE 113 mmol/L (97-110); CREATININE 0.64 mg/dl (0.44-1.00); GLUCOSE 78 mg/dl (70-220); POTASSIUM 4.1 mmol/L (3.5-5.1); SODIUM 142 mmol/L (135-144)
[2017-05-13] MEDS: POTASSIUM CHLORIDE 20 MEQ in LACTATED RINGER'S 990 ML IV ×3 (05:17→14:28)
[2017-05-13] MEDS: PROPOFOL 100 ML IV ×3 (06:21→19:54)
[2017-05-13] MEDS: FAMOTIDINE 20 MG INJ IV ×2 (08:43→22:06)
[2017-05-13 10:51] LABS: AADO2 Arterial 100.8 mmHg (7.0-24.0); Arterial Base Excess -3.3 mmol/L (-3.0-3); Arterial Blood Gas Oxygen Sat 95.7 mmHG (95.0-98.0); Arterial COHb 0 % (0.0-3.0); Arterial Fraction of Oxyhgb 95.7 % (93.0-99.0); Arterial HCO3 19.8 mmol/L (22.0-26.0); Arterial MetHb 0 % (0.0-1.5); Arterial Total Hemglobin 12.2 g/dl (12.0-18.0); Blood Gas PS 8; MODE VENT - CPAP; Site Right Radial
[2017-05-13] MEDS: PIPER-TAZO 3.375 GM IV (PMX) 50 ML IVPB (17:59)
[2017-05-13] MEDS: FENTAnyl (DRIP) 1000 mcg/100mL 100 ML IV (19:54)
[2017-05-14] MEDS: PIPER-TAZO 3.375 GM IV (PMX) 50 ML IVPB ×5 (00:42→23:04)
[2017-05-14] MEDS: POTASSIUM CHLORIDE 20 MEQ in LACTATED RINGER'S 990 ML IV ×4 (00:43→20:30)
[2017-05-14] MEDS: DEXMEDETOMIDINE HCL 200 MCG in SOD CHLORIDE 0.9% 48 ML IV ×2 (01:15→03:43)
[2017-05-14 05:07] LABS: ADD MAN DIFF? NO
[2017-05-14 05:12] LABS: ABNORMAL IP MESSAGE 1; BASOPHIL # 0.1 10^3/ul (0.0-0.1); BASOPHILS % 0.2 % (0.0-2.0); EOSINOPHILS # 0.4 10^3/ul (0.0-0.5); EOSINOPHILS % 2.2 % (0.0-7.0); HEMOGLOBIN 9.7 g/dl (12.0-16.0); LYMPHOCYTES # 1.1 10^3/ul (0.8-2.9); LYMPHOCYTES % 5.5 % (15.0-51.0); MEAN CORPUSCULAR HEMOGLOBIN 28.1 pg (29.0-33.0); MEAN CORPUSCULAR HGB CONC 32.3 g/dl (32.0-37.0); MONOCYTE # 1.8 10^3/ul (0.3-0.9); MONOCYTES % 8.8 % (0.0-11.0); NEUTROPHIL # 16.8 10^3/ul (1.6-7.5); NEUTROPHILS % 82.7 % (39.0-77.0); NUCLEATED RED BLOOD CELLS% 0.1 /100WBC (0.0-0.0); PLATELET COUNT 250 10^3/UL (140-415); RED BLOOD COUNT 3.45 10^6/ul (4.20-5.40); RED CELL DISTRIBUTION WIDTH 15.3 % (11.5-14.5)
[2017-05-14 05:12] LABS: WHITE BLOOD COUNT 20.3 10^3/ul (4.8-10.8)
[2017-05-14 05:18] LABS: POSITIVE DIFF @See below
[2017-05-14 05:42] LABS: ANION GAP 9 (8-16); BLOOD UREA NITROGEN 10 mg/dl (7-20); CALCIUM 7.9 mg/dl (8.4-10.2); CARBON DIOXIDE 25 mmol/L (21-31); CHLORIDE 112 mmol/L (97-110); CREATININE 0.62 mg/dl (0.44-1.00); GLUCOSE 66 mg/dl (70-220); POTASSIUM 4.3 mmol/L (3.5-5.1); SODIUM 142 mmol/L (135-144)
[2017-05-14] MEDS: FAMOTIDINE 20 MG INJ IV ×2 (09:50→20:21)
[2017-05-14] MEDS: FUROSEMIDE 20 MG INJ IV (12:27)
[2017-05-14 13:16] LABS: AADO2 Arterial 93.5 mmHg (7.0-24.0); Allen Test ACCEPTAB; Arterial Base Excess -1.5 mmol/L (-3.0-3); Arterial Blood Gas Oxygen Sat 97.3 mmHG (95.0-98.0); Arterial COHb 0.3 % (0.0-3.0); Arterial Fraction of Oxyhgb 96.9 % (93.0-99.0); Arterial HCO3 20.6 mmol/L (22.0-26.0); Arterial MetHb 0.1 % (0.0-1.5); Arterial Total Hemglobin 13.8 g/dl (12.0-18.0); Arterial pCO2 28.1 mmhg (35-45); Blood Gas PS 10; MODE VENT - CPAP; Site Right Radial
[2017-05-15] MEDS ORDERED: DEXTROSE 50% 50 ML SYRINGE (02:16)
[2017-05-15] MEDS: D5W-0.45 NACL + KCL 20 MEQ 1,000 ML IV ×4 (03:14→22:36)
[2017-05-15 05:54] LABS: ADD MAN DIFF? NO
[2017-05-15] MEDS: PANTOPRAZOLE 40 MG INJ IV ×2 (06:00→17:42)
[2017-05-15] MEDS: PIPER-TAZO 3.375 GM IV (PMX) 50 ML IVPB ×3 (06:00→17:42)
[2017-05-15 06:23] LABS: ANION GAP 13 (8-16); BLOOD UREA NITROGEN 8 mg/dl (7-20); CALCIUM 8.1 mg/dl (8.4-10.2); CARBON DIOXIDE 24 mmol/L (21-31); CHLORIDE 107 mmol/L (97-110); CREATININE 0.61 mg/dl (0.44-1.00); GLUCOSE 104 mg/dl (70-220); MAGNESIUM 1.6 mg/dl (1.7-2.5); PHOSPHORUS 3.3 mg/dl (2.5-4.9); POTASSIUM 3.9 mmol/L (3.5-5.1); SODIUM 140 mmol/L (135-144)
[2017-05-15 07:08] LABS: WHITE BLOOD COUNT 13.8 10^3/ul (4.8-10.8)
[2017-05-15 07:08] LABS: ABNORMAL IP MESSAGE 1; BASOPHIL # 0.1 10^3/ul (0.0-0.1); BASOPHILS % 0.4 % (0.0-2.0); EOSINOPHILS # 0.1 10^3/ul (0.0-0.5); EOSINOPHILS % 0.9 % (0.0-7.0); HEMATOCRIT 31.7 % (37.0-47.0); HEMOGLOBIN 10.3 g/dl (12.0-16.0); LYMPHOCYTES # 0.9 10^3/ul (0.8-2.9); LYMPHOCYTES % 6.2 % (15.0-51.0); MEAN CORPUSCULAR HEMOGLOBIN 27.5 pg (29.0-33.0); MEAN CORPUSCULAR HGB CONC 32.5 g/dl (32.0-37.0); MEAN CORPUSCULAR VOLUME 84.8 fl (82.0-101.0); MEAN PLATELET VOLUME 11.4 fl (7.4-10.4); MONOCYTE # 1.8 10^3/ul (0.3-0.9); MONOCYTES % 13.2 % (0.0-11.0); NEUTROPHIL # 10.8 10^3/ul (1.6-7.5); NEUTROPHILS % 78.5 % (39.0-77.0); NUCLEATED RED BLOOD CELLS% 0.1 /100WBC (0.0-0.0); PLATELET COUNT 310 10^3/UL (140-415); RED BLOOD COUNT 3.74 10^6/ul (4.20-5.40)
[2017-05-15 07:10] LABS: POSITIVE DIFF @See below
[2017-05-15 08:34] LABS: AADO2 Arterial 79.3 mmHg (7.0-24.0); Allen Test ACCEPTAB; Arterial Base Excess -1.8 mmol/L (-3.0-3); Arterial Blood Gas Oxygen Sat 97.7 mmHG (95.0-98.0); Arterial COHb 0.3 % (0.0-3.0); Arterial Fraction of Oxyhgb 97.1 % (93.0-99.0); Arterial HCO3 20.4 mmol/L (22.0-26.0); Arterial MetHb 0.3 % (0.0-1.5); Arterial Total Hemglobin 11.2 g/dl (12.0-18.0); Arterial pCO2 26.9 mmhg (35-45); MODE NASAL CANNULA; Site Right Radial
[2017-05-15] MEDS: MAGNESIUM SULFATE 2 GM/50 ML 50 ML IVPB (09:26)
[2017-05-15] MEDS: morphine 2 MG INJ IV ×2 (10:09→23:38)
[2017-05-15] MEDS ORDERED: VANCOMYCIN IV PER PHARMACY XX (10:30)
[2017-05-15] MEDS: ALBUTEROL/IPRATROPIUM (NEB) 3 ML AMP HHN ×2 (13:38→20:38)
[2017-05-15] MEDS: VANCOMYCIN 1.75 GM in NS 500 ML IVPB (13:49)
[2017-05-15] MEDS: VANCOMYCIN 1 GM in NS 250 ML IVPB (22:59)
[2017-05-16] MEDS: PIPER-TAZO 3.375 GM IV (PMX) 50 ML IVPB ×4 (00:33→17:21)
[2017-05-16] MEDS: HYDROmorphONE 0.5 MG/0.5 ML SYG IV ×2 (00:36→14:57)
[2017-05-16] MEDS: ALBUTEROL/IPRATROPIUM (NEB) 3 ML AMP HHN ×5 (02:00→19:40)
[2017-05-16 04:59] LABS: ADD MAN DIFF? NO
[2017-05-16] MEDS: D5W-0.45 NACL + KCL 20 MEQ 1,000 ML IV ×5 (05:10→22:24)
[2017-05-16 05:12] LABS: WHITE BLOOD COUNT 11.9 10^3/ul (4.8-10.8)
[2017-05-16 05:12] LABS: ABNORMAL IP MESSAGE 1; BASOPHIL # 0.1 10^3/ul (0.0-0.1); BASOPHILS % 0.5 % (0.0-2.0); EOSINOPHILS # 0.3 10^3/ul (0.0-0.5); EOSINOPHILS % 2.6 % (0.0-7.0); HEMATOCRIT 32.3 % (37.0-47.0); HEMOGLOBIN 10.4 g/dl (12.0-16.0); LYMPHOCYTES % 8.6 % (15.0-51.0); MEAN CORPUSCULAR HEMOGLOBIN 27.7 pg (29.0-33.0); MEAN CORPUSCULAR HGB CONC 32.2 g/dl (32.0-37.0); MEAN CORPUSCULAR VOLUME 85.9 fl (82.0-101.0); MEAN PLATELET VOLUME 11.7 fl (7.4-10.4); MONOCYTE # 1.9 10^3/ul (0.3-0.9); MONOCYTES % 16.1 % (0.0-11.0); NEUTROPHIL # 8.5 10^3/ul (1.6-7.5); NEUTROPHILS % 70.9 % (39.0-77.0); NUCLEATED RED BLOOD CELLS% 0.2 /100WBC (0.0-0.0); PLATELET COUNT 341 10^3/UL (140-415); RED BLOOD COUNT 3.76 10^6/ul (4.20-5.40); RED CELL DISTRIBUTION WIDTH 15.1 % (11.5-14.5)
[2017-05-16] MEDS: PANTOPRAZOLE 40 MG INJ IV ×2 (05:16→17:21)
[2017-05-16 05:24] LABS: ANION GAP 10 (8-16); BLOOD UREA NITROGEN 5 mg/dl (7-20); CALCIUM 7.8 mg/dl (8.4-10.2); CARBON DIOXIDE 27 mmol/L (21-31); CHLORIDE 106 mmol/L (97-110); CREATININE 0.59 mg/dl (0.44-1.00); GLUCOSE 121 mg/dl (70-220); MAGNESIUM 1.9 mg/dl (1.7-2.5); PHOSPHORUS 2.9 mg/dl (2.5-4.9); POTASSIUM 3.5 mmol/L (3.5-5.1); SODIUM 139 mmol/L (135-144)
[2017-05-16 05:43] LABS: POSITIVE DIFF @See below
[2017-05-16] MEDS: morphine 2 MG INJ IV (08:45)
[2017-05-16] MEDS: VANCOMYCIN 1 GM in NS 250 ML IVPB ×2 (10:52→23:49)
[2017-05-16 23:30] LABS: VANCOMYCIN,TROUGH 12.3 ug/ml (10.0-20.0)
[2017-05-17] MEDS: PIPER-TAZO 3.375 GM IV (PMX) 50 ML IVPB ×4 (00:01→18:07)
[2017-05-17] MEDS: morphine 2 MG INJ IV ×3 (00:01→17:24)
[2017-05-17] MEDS: ALBUTEROL/IPRATROPIUM (NEB) 3 ML AMP HHN ×4 (00:57→20:55)
[2017-05-17] MEDS: LORAZEPAM 2 MG INJ IV ×2 (01:11→23:23)
[2017-05-17] MEDS: PANTOPRAZOLE 40 MG INJ IV ×2 (05:24→18:07)
[2017-05-17] MEDS: HYDROmorphONE 0.5 MG/0.5 ML SYG IV (06:51)
[2017-05-17 09:03] LABS: ADD MAN DIFF? NO
[2017-05-17 09:05] LABS: ABNORMAL IP MESSAGE 1; BASOPHIL # 0.1 10^3/ul (0.0-0.1); BASOPHILS % 0.5 % (0.0-2.0); EOSINOPHILS # 0.5 10^3/ul (0.0-0.5); EOSINOPHILS % 4.1 % (0.0-7.0); HEMATOCRIT 31.2 % (37.0-47.0); HEMOGLOBIN 10.1 g/dl (12.0-16.0); LYMPHOCYTES % 7.6 % (15.0-51.0); MEAN CORPUSCULAR HEMOGLOBIN 28.1 pg (29.0-33.0); MEAN CORPUSCULAR HGB CONC 32.4 g/dl (32.0-37.0); MEAN CORPUSCULAR VOLUME 86.9 fl (82.0-101.0); MEAN PLATELET VOLUME 12.3 fl (7.4-10.4); MONOCYTE # 1.8 10^3/ul (0.3-0.9); MONOCYTES % 13.3 % (0.0-11.0); NEUTROPHIL # 9.7 10^3/ul (1.6-7.5); NEUTROPHILS % 72.8 % (39.0-77.0); NUCLEATED RED BLOOD CELLS% 0.2 /100WBC (0.0-0.0); PLATELET COUNT 358 10^3/UL (140-415); RED BLOOD COUNT 3.59 10^6/ul (4.20-5.40); RED CELL DISTRIBUTION WIDTH 15.6 % (11.5-14.5)
[2017-05-17 09:05] LABS: WHITE BLOOD COUNT 13.3 10^3/ul (4.8-10.8)
[2017-05-17 10:29] LABS: ANION GAP 8 (8-16); BLOOD UREA NITROGEN 4 mg/dl (7-20); CALCIUM 7.7 mg/dl (8.4-10.2); CARBON DIOXIDE 26 mmol/L (21-31); CHLORIDE 107 mmol/L (97-110); CREATININE 0.58 mg/dl (0.44-1.00); GLUCOSE 104 mg/dl (70-220); SODIUM 137 mmol/L (135-144)
[2017-05-17] MEDS ORDERED: PIPER-TAZO 3.375 GM IV (PMX) 50 ML IVPB (11:00)
[2017-05-17] MEDS: VANCOMYCIN 1 GM in NS 250 ML IVPB ×2 (11:52→23:23)
[2017-05-17 12:14] LABS: AADO2 Arterial 130.9 mmHg (7.0-24.0); Allen Test ACCEPTAB; Arterial Base Excess 2.1 mmol/L (-3.0-3); Arterial Blood Gas Oxygen Sat 96.5 mmHG (95.0-98.0); Arterial COHb 0.2 % (0.0-3.0); Arterial MetHb 0.3 % (0.0-1.5); Arterial Total Hemglobin 13.1 g/dl (12.0-18.0); Arterial pCO2 43.1 mmhg (35-45); MODE NASAL CANNULA; Site Right Radial
[2017-05-17] MEDS ORDERED: HYDROmorphONE 1 MG/ML SYG IV (13:00)
[2017-05-17] MEDS: FUROSEMIDE 20 MG INJ IV (14:30)
[2017-05-17] MEDS: D5W-0.45 NACL + KCL 20 MEQ 1,000 ML IV (14:32)
[2017-05-18] MEDS: ALBUTEROL/IPRATROPIUM (NEB) 3 ML AMP HHN ×5 (01:45→19:58)
[2017-05-18] MEDS: PIPER-TAZO 3.375 GM IV (PMX) 50 ML IVPB ×4 (02:24→17:44)
[2017-05-18] MEDS: LORAZEPAM 2 MG INJ IV (02:24)
[2017-05-18] MEDS: D5W-0.45 NACL + KCL 20 MEQ 1,000 ML IV ×3 (03:56→22:52)
[2017-05-18] MEDS: PANTOPRAZOLE 40 MG INJ IV ×2 (05:20→17:50)
[2017-05-18 07:41] LABS: ADD MAN DIFF? NO
[2017-05-18 07:52] LABS: BASOPHIL # 0.1 10^3/ul (0.0-0.1); BASOPHILS % 0.5 % (0.0-2.0); EOSINOPHILS # 0.5 10^3/ul (0.0-0.5); EOSINOPHILS % 4.3 % (0.0-7.0); HEMATOCRIT 31.4 % (37.0-47.0); HEMOGLOBIN 10.1 g/dl (12.0-16.0); LYMPHOCYTES # 0.9 10^3/ul (0.8-2.9); LYMPHOCYTES % 7.1 % (15.0-51.0); MEAN CORPUSCULAR HEMOGLOBIN 27.6 pg (29.0-33.0); MEAN CORPUSCULAR HGB CONC 32.2 g/dl (32.0-37.0); MEAN CORPUSCULAR VOLUME 85.8 fl (82.0-101.0); MEAN PLATELET VOLUME 12.1 fl (7.4-10.4); MONOCYTE # 1.4 10^3/ul (0.3-0.9); MONOCYTES % 11.7 % (0.0-11.0); NEUTROPHIL # 9.3 10^3/ul (1.6-7.5); NEUTROPHILS % 75.5 % (39.0-77.0); NUCLEATED RED BLOOD CELLS% 0.2 /100WBC (0.0-0.0); PLATELET COUNT 403 10^3/UL (140-415); RED BLOOD COUNT 3.66 10^6/ul (4.20-5.40); RED CELL DISTRIBUTION WIDTH 15.6 % (11.5-14.5)
[2017-05-18 07:52] LABS: WHITE BLOOD COUNT 12.3 10^3/ul (4.8-10.8)
[2017-05-18 08:16] LABS: BLOOD UREA NITROGEN 4 mg/dl (7-20); CARBON DIOXIDE 28 mmol/L (21-31); CHLORIDE 105 mmol/L (97-110); CREATININE 0.65 mg/dl (0.44-1.00); GLUCOSE 97 mg/dl (70-220); MAGNESIUM 1.8 mg/dl (1.7-2.5); SODIUM 139 mmol/L (135-144)
[2017-05-18 09:06] LABS: ANION GAP 9 (8-16)
[2017-05-18] MEDS: VANCOMYCIN 1 GM in NS 250 ML IVPB (10:37)
[2017-05-18] MEDS: LIDOCAINE 1% (MPF) 10 ML INJ SC (16:40)
[2017-05-18] MEDS: SOD CHLORIDE 0.9% 100 ML (17:40)
[2017-05-18] MEDS: POTASSIUM CHLORIDE 250 ML IVPB (17:46)
[2017-05-18] MEDS ORDERED: VITAMIN A & D 5 GM OINT PACKET TOP (22:35)
[2017-05-18] MEDS: morphine 2 MG INJ IV (22:51)
[2017-05-19] MEDS: PIPER-TAZO 3.375 GM IV (PMX) 50 ML IVPB ×4 (00:57→18:25)
[2017-05-19] MEDS: ALBUTEROL/IPRATROPIUM (NEB) 3 ML AMP HHN ×4 (01:09→19:47)
[2017-05-19] MEDS: morphine 2 MG INJ IV (01:15)
[2017-05-19 07:33] LABS: ADD MAN DIFF? NO
[2017-05-19 07:41] LABS: WHITE BLOOD COUNT 12.4 10^3/ul (4.8-10.8)
[2017-05-19 07:41] LABS: BASOPHILS % 0.3 % (0.0-2.0); EOSINOPHILS # 0.3 10^3/ul (0.0-0.5); HEMATOCRIT 29.7 % (37.0-47.0); HEMOGLOBIN 9.6 g/dl (12.0-16.0); LYMPHOCYTES # 0.7 10^3/ul (0.8-2.9); LYMPHOCYTES % 5.9 % (15.0-51.0); MEAN CORPUSCULAR HEMOGLOBIN 27.7 pg (29.0-33.0); MEAN CORPUSCULAR HGB CONC 32.3 g/dl (32.0-37.0); MEAN CORPUSCULAR VOLUME 85.6 fl (82.0-101.0); MEAN PLATELET VOLUME 12.2 fl (7.4-10.4); MONOCYTE # 1.2 10^3/ul (0.3-0.9); MONOCYTES % 9.9 % (0.0-11.0); NEUTROPHILS % 81.2 % (39.0-77.0); PLATELET COUNT 432 10^3/UL (140-415); RED BLOOD COUNT 3.47 10^6/ul (4.20-5.40); RED CELL DISTRIBUTION WIDTH 15.8 % (11.5-14.5)
[2017-05-19 07:55] LABS: ANION GAP 9 (8-16); BLOOD UREA NITROGEN 3 mg/dl (7-20); CALCIUM 7.8 mg/dl (8.4-10.2); CARBON DIOXIDE 28 mmol/L (21-31); CHLORIDE 105 mmol/L (97-110); CREATININE 0.62 mg/dl (0.44-1.00); GLUCOSE 91 mg/dl (70-220); SODIUM 139 mmol/L (135-144)
[2017-05-19] MEDS: D5W-0.45 NACL + KCL 20 MEQ 1,000 ML IV ×2 (10:30→20:34)
[2017-05-19] MEDS: PANTOPRAZOLE 40 MG INJ IV (12:10)
[2017-05-19] MEDS: POTASSIUM CHLORIDE 250 ML IVPB (16:50)
[2017-05-19] MEDS: HYDROmorphONE 1 MG/ML SYG IV (18:44)
[2017-05-20] MEDS: HYDROmorphONE 1 MG/ML SYG IV ×4 (01:03→22:44)
[2017-05-20] MEDS: PIPER-TAZO 3.375 GM IV (PMX) 50 ML IVPB ×5 (01:03→23:00)
[2017-05-20] MEDS: ALBUTEROL/IPRATROPIUM (NEB) 3 ML AMP HHN ×4 (02:00→20:25)
[2017-05-20] MEDS: PANTOPRAZOLE 40 MG INJ IV (08:51)
[2017-05-20] MEDS: D5W-0.45 NACL + KCL 20 MEQ 1,000 ML IV ×2 (10:58→15:12)
[2017-05-20 14:30] LABS: ADD MAN DIFF? NO
[2017-05-20 14:31] LABS: BASOPHIL # 0.1 10^3/ul (0.0-0.1); BASOPHILS % 0.4 % (0.0-2.0); EOSINOPHILS # 0.2 10^3/ul (0.0-0.5); EOSINOPHILS % 2.1 % (0.0-7.0); HEMATOCRIT 30.4 % (37.0-47.0); HEMOGLOBIN 9.6 g/dl (12.0-16.0); LYMPHOCYTES # 0.7 10^3/ul (0.8-2.9); LYMPHOCYTES % 6.5 % (15.0-51.0); MEAN CORPUSCULAR HEMOGLOBIN 27.5 pg (29.0-33.0); MEAN CORPUSCULAR HGB CONC 31.6 g/dl (32.0-37.0); MEAN CORPUSCULAR VOLUME 87.1 fl (82.0-101.0); MONOCYTE # 1.1 10^3/ul (0.3-0.9); MONOCYTES % 9.3 % (0.0-11.0); NEUTROPHIL # 9.2 10^3/ul (1.6-7.5); NUCLEATED RED BLOOD CELLS% 0.2 /100WBC (0.0-0.0); PLATELET COUNT 456 10^3/UL (140-415); RED BLOOD COUNT 3.49 10^6/ul (4.20-5.40); RED CELL DISTRIBUTION WIDTH 15.7 % (11.5-14.5)
[2017-05-20 14:31] LABS: WHITE BLOOD COUNT 11.3 10^3/ul (4.8-10.8)
[2017-05-20 14:51] LABS: ANION GAP 8 (8-16); CALCIUM 7.8 mg/dl (8.4-10.2); CARBON DIOXIDE 28 mmol/L (21-31); CHLORIDE 103 mmol/L (97-110); CREATININE 0.57 mg/dl (0.44-1.00); GLUCOSE 122 mg/dl (70-220); POTASSIUM 3.3 mmol/L (3.5-5.1); SODIUM 136 mmol/L (135-144)
[2017-05-20 14:52] LABS: BLOOD UREA NITROGEN < 2 mg/dl (7-20)
[2017-05-20] MEDS: POTASSIUM CHLORIDE (SR) 20 MEQ TAB PO (16:00)
[2017-05-20] MEDS: POTASSIUM CHLORIDE 20 MEQ in DEXTROSE 5% 100 ML IVPB (18:27)
[2017-05-20] MEDS: morphine 2 MG INJ IV ×2 (18:34→20:23)
[2017-05-20] MEDS: LORAZEPAM 2 MG INJ IV (22:44)
[2017-05-21] MEDS: D5W-0.45 NACL + KCL 20 MEQ 1,000 ML IV ×3 (01:52→21:01)
[2017-05-21] MEDS: ALBUTEROL/IPRATROPIUM (NEB) 3 ML AMP HHN ×4 (02:00→19:24)
[2017-05-21] MEDS: PIPER-TAZO 3.375 GM IV (PMX) 50 ML IVPB ×4 (05:58→23:35)
[2017-05-21] MEDS: PANTOPRAZOLE 40 MG INJ IV (09:25)
[2017-05-21] MEDS: morphine 2 MG INJ IV ×3 (09:25→23:43)
[2017-05-21 10:09] LABS: ADD MAN DIFF? NO
[2017-05-21 10:13] LABS: BASOPHIL # 0.1 10^3/ul (0.0-0.1); BASOPHILS % 0.5 % (0.0-2.0); EOSINOPHILS # 0.3 10^3/ul (0.0-0.5); EOSINOPHILS % 2.8 % (0.0-7.0); HEMATOCRIT 28.9 % (37.0-47.0); HEMOGLOBIN 9.1 g/dl (12.0-16.0); LYMPHOCYTES # 0.8 10^3/ul (0.8-2.9); MEAN CORPUSCULAR HEMOGLOBIN 27.2 pg (29.0-33.0); MEAN CORPUSCULAR HGB CONC 31.5 g/dl (32.0-37.0); MEAN CORPUSCULAR VOLUME 86.3 fl (82.0-101.0); MEAN PLATELET VOLUME 12.2 fl (7.4-10.4); MONOCYTE # 1.1 10^3/ul (0.3-0.9); MONOCYTES % 9.9 % (0.0-11.0); NEUTROPHIL # 8.8 10^3/ul (1.6-7.5); NEUTROPHILS % 79.3 % (39.0-77.0); PLATELET COUNT 475 10^3/UL (140-415); RED BLOOD COUNT 3.35 10^6/ul (4.20-5.40); RED CELL DISTRIBUTION WIDTH 15.9 % (11.5-14.5)
[2017-05-21 10:13] LABS: WHITE BLOOD COUNT 11.1 10^3/ul (4.8-10.8)
[2017-05-21 10:47] LABS: ANION GAP 8 (8-16); CALCIUM 8.2 mg/dl (8.4-10.2); CARBON DIOXIDE 30 mmol/L (21-31); CHLORIDE 103 mmol/L (97-110); CREATININE 0.55 mg/dl (0.44-1.00); GLUCOSE 93 mg/dl (70-220); SODIUM 138 mmol/L (135-144)
[2017-05-21 11:08] LABS: BLOOD UREA NITROGEN < 2 mg/dl (7-20)
[2017-05-21] MEDS: POTASSIUM CHLORIDE 250 ML IVPB (18:53)
[2017-05-22] MEDS: ALBUTEROL/IPRATROPIUM (NEB) 3 ML AMP HHN ×4 (01:28→19:42)
[2017-05-22] MEDS: D5W-0.45 NACL + KCL 20 MEQ 1,000 ML IV ×2 (03:56→17:22)
[2017-05-22] MEDS: morphine 2 MG INJ IV ×2 (04:02→09:25)
[2017-05-22] MEDS: PIPER-TAZO 3.375 GM IV (PMX) 50 ML IVPB ×3 (05:05→18:00)
[2017-05-22] MEDS: PANTOPRAZOLE 40 MG INJ IV (09:24)
[2017-05-22 09:51] LABS: ADD MAN DIFF? NO
[2017-05-22 09:53] LABS: BASOPHILS % 0.4 % (0.0-2.0); EOSINOPHILS # 0.2 10^3/ul (0.0-0.5); EOSINOPHILS % 2.5 % (0.0-7.0); HEMATOCRIT 30.2 % (37.0-47.0); HEMOGLOBIN 9.6 g/dl (12.0-16.0); LYMPHOCYTES # 0.7 10^3/ul (0.8-2.9); LYMPHOCYTES % 7.3 % (15.0-51.0); MEAN CORPUSCULAR HEMOGLOBIN 27.4 pg (29.0-33.0); MEAN CORPUSCULAR HGB CONC 31.8 g/dl (32.0-37.0); MEAN CORPUSCULAR VOLUME 86.3 fl (82.0-101.0); MEAN PLATELET VOLUME 12.3 fl (7.4-10.4); MONOCYTES % 11.3 % (0.0-11.0); NEUTROPHILS % 78.1 % (39.0-77.0); PLATELET COUNT 515 10^3/UL (140-415); RED CELL DISTRIBUTION WIDTH 15.8 % (11.5-14.5)
[2017-05-22 10:28] LABS: ANION GAP 8 (8-16); CALCIUM 8.3 mg/dl (8.4-10.2); CARBON DIOXIDE 29 mmol/L (21-31); CHLORIDE 103 mmol/L (97-110); CREATININE 0.56 mg/dl (0.44-1.00); GLUCOSE 104 mg/dl (70-220); MAGNESIUM 1.6 mg/dl (1.7-2.5); POTASSIUM 3.2 mmol/L (3.5-5.1); SODIUM 137 mmol/L (135-144)
[2017-05-22 10:34] LABS: BLOOD UREA NITROGEN < 2 mg/dl (7-20)
[2017-05-22] MEDS: MAGNESIUM SULFATE 4 GM/100 ML 100 ML IVPB (17:17)
[2017-05-22] MEDS: METOCLOPRAMIDE 10 MG INJ IV (17:22)
[2017-05-22] MEDS: SOD CHLORIDE IVPB (20:31)
[2017-05-22] MEDS: POTASSIUM PHOSPHATE IVPB (20:31)
[2017-05-23] MEDS: METOCLOPRAMIDE 10 MG INJ IV ×4 (00:42→17:02)
[2017-05-23] MEDS: PIPER-TAZO 3.375 GM IV (PMX) 50 ML IVPB ×4 (00:43→17:01)
[2017-05-23] MEDS: ALBUTEROL/IPRATROPIUM (NEB) 3 ML AMP HHN ×4 (01:40→19:16)
[2017-05-23] MEDS: DIPHENHYDRAMINE 50 MG INJ IV (02:17)
[2017-05-23] MEDS: LORAZEPAM 2 MG INJ IV (03:59)
[2017-05-23] MEDS: D5W-0.45 NACL + KCL 20 MEQ 1,000 ML IV ×2 (04:03→13:01)
[2017-05-23] MEDS: PANTOPRAZOLE 40 MG INJ IV (08:10)
[2017-05-23 10:09] LABS: ADD MAN DIFF? NO
[2017-05-23 10:12] LABS: BASOPHIL # 0.1 10^3/ul (0.0-0.1); BASOPHILS % 0.7 % (0.0-2.0); EOSINOPHILS % 0.4 % (0.0-7.0); HEMATOCRIT 30.2 % (37.0-47.0); HEMOGLOBIN 9.8 g/dl (12.0-16.0); LYMPHOCYTES # 0.6 10^3/ul (0.8-2.9); LYMPHOCYTES % 7.2 % (15.0-51.0); MEAN CORPUSCULAR HEMOGLOBIN 27.3 pg (29.0-33.0); MEAN CORPUSCULAR HGB CONC 32.5 g/dl (32.0-37.0); MEAN CORPUSCULAR VOLUME 84.1 fl (82.0-101.0); MEAN PLATELET VOLUME 12.4 fl (7.4-10.4); MONOCYTE # 1.5 10^3/ul (0.3-0.9); MONOCYTES % 17.5 % (0.0-11.0); NEUTROPHIL # 6.2 10^3/ul (1.6-7.5); NEUTROPHILS % 73.6 % (39.0-77.0); PLATELET COUNT 520 10^3/UL (140-415); RED BLOOD COUNT 3.59 10^6/ul (4.20-5.40); RED CELL DISTRIBUTION WIDTH 15.9 % (11.5-14.5)
[2017-05-23 10:12] LABS: WHITE BLOOD COUNT 8.4 10^3/ul (4.8-10.8)
[2017-05-23 10:43] LABS: ANION GAP 10 (8-16); CALCIUM 7.4 mg/dl (8.4-10.2); CARBON DIOXIDE 27 mmol/L (21-31); CHLORIDE 101 mmol/L (97-110); CREATININE 0.56 mg/dl (0.44-1.00); GLUCOSE 100 mg/dl (70-220); SODIUM 135 mmol/L (135-144)
[2017-05-23 10:44] LABS: BLOOD UREA NITROGEN < 2 mg/dl (7-20)
[2017-05-23] MEDS: POTASSIUM CHLORIDE 20 MEQ POWDER FOR ORAL SOLN PO (15:47)
[2017-05-23] MEDS: POTASSIUM CHLORIDE 30 MEQ in SOD CHLORIDE 0.9% 150 ML IVPB (17:02)
[2017-05-23] MEDS: ACETAMINOPHEN 650 MG SUPP PR (22:00)
[2017-05-24] MEDS: METOCLOPRAMIDE 10 MG INJ IV ×5 (00:48→23:55)
[2017-05-24] MEDS: ALBUTEROL/IPRATROPIUM (NEB) 3 ML AMP HHN ×4 (01:00→19:37)
[2017-05-24] MEDS: D5W-0.45 NACL + KCL 20 MEQ 1,000 ML IV (05:48)
[2017-05-24 07:38] LABS: ADD MAN DIFF? NO
[2017-05-24 07:41] LABS: WHITE BLOOD COUNT 5.4 10^3/ul (4.8-10.8)
[2017-05-24 07:41] LABS: ABNORMAL IP MESSAGE 1; BASOPHIL # 0.1 10^3/ul (0.0-0.1); BASOPHILS % 1.3 % (0.0-2.0); EOSINOPHILS # 0.1 10^3/ul (0.0-0.5); EOSINOPHILS % 1.7 % (0.0-7.0); HEMOGLOBIN 9.4 g/dl (12.0-16.0); LYMPHOCYTES # 0.6 10^3/ul (0.8-2.9); LYMPHOCYTES % 10.5 % (15.0-51.0); MEAN CORPUSCULAR HEMOGLOBIN 27.2 pg (29.0-33.0); MEAN CORPUSCULAR HGB CONC 32.4 g/dl (32.0-37.0); MEAN CORPUSCULAR VOLUME 84.1 fl (82.0-101.0); MEAN PLATELET VOLUME 12.2 fl (7.4-10.4); MONOCYTE # 1.2 10^3/ul (0.3-0.9); MONOCYTES % 21.4 % (0.0-11.0); NEUTROPHIL # 3.5 10^3/ul (1.6-7.5); NEUTROPHILS % 64.7 % (39.0-77.0); PLATELET COUNT 495 10^3/UL (140-415); RED BLOOD COUNT 3.45 10^6/ul (4.20-5.40); RED CELL DISTRIBUTION WIDTH 16.5 % (11.5-14.5)
[2017-05-24 07:42] LABS: POSITIVE DIFF @See below
[2017-05-24] MEDS: PANTOPRAZOLE 40 MG INJ IV (08:12)
[2017-05-24 08:15] LABS: ANION GAP 9 (8-16); BLOOD UREA NITROGEN 3 mg/dl (7-20); CALCIUM 7.9 mg/dl (8.4-10.2); CARBON DIOXIDE 27 mmol/L (21-31); CHLORIDE 105 mmol/L (97-110); CREATININE 0.51 mg/dl (0.44-1.00); GLUCOSE 92 mg/dl (70-220); POTASSIUM 3.1 mmol/L (3.5-5.1); SODIUM 138 mmol/L (135-144)
[2017-05-24] MEDS: POTASSIUM CHLORIDE (SR) 20 MEQ TAB PO (11:19)
[2017-05-24] MEDS: morphine 2 MG INJ IV ×2 (20:17→22:29)
[2017-05-25] MEDS: ALBUTEROL/IPRATROPIUM (NEB) 3 ML AMP HHN ×4 (01:00→20:04)
[2017-05-25] MEDS ORDERED: VITAMIN A & D 5 GM OINT PACKET TOP (01:31)
[2017-05-25] MEDS: D5W-0.45 NACL + KCL 20 MEQ 1,000 ML IV (03:31)
[2017-05-25] MEDS: morphine 2 MG INJ IV ×6 (04:27→20:25)
[2017-05-25] MEDS: METOCLOPRAMIDE 10 MG INJ IV ×3 (05:14→17:24)
[2017-05-25 05:48] LABS: ADD MAN DIFF? NO
[2017-05-25 05:51] LABS: BASOPHIL # 0.1 10^3/ul (0.0-0.1); BASOPHILS % 1.4 % (0.0-2.0); EOSINOPHILS # 0.1 10^3/ul (0.0-0.5); EOSINOPHILS % 1.6 % (0.0-7.0); HEMATOCRIT 30.7 % (37.0-47.0); LYMPHOCYTES # 0.9 10^3/ul (0.8-2.9); LYMPHOCYTES % 17.4 % (15.0-51.0); MEAN CORPUSCULAR HEMOGLOBIN 27.2 pg (29.0-33.0); MEAN CORPUSCULAR HGB CONC 32.6 g/dl (32.0-37.0); MEAN CORPUSCULAR VOLUME 83.7 fl (82.0-101.0); MEAN PLATELET VOLUME 12.4 fl (7.4-10.4); MONOCYTE # 0.9 10^3/ul (0.3-0.9); NEUTROPHILS % 60.8 % (39.0-77.0); PLATELET COUNT 491 10^3/UL (140-415); RED BLOOD COUNT 3.67 10^6/ul (4.20-5.40); RED CELL DISTRIBUTION WIDTH 16.3 % (11.5-14.5)
[2017-05-25 06:38] LABS: ANION GAP 11 (8-16); BLOOD UREA NITROGEN 3 mg/dl (7-20); CALCIUM 7.8 mg/dl (8.4-10.2); CARBON DIOXIDE 26 mmol/L (21-31); CHLORIDE 102 mmol/L (97-110); CREATININE 0.52 mg/dl (0.44-1.00); GLUCOSE 97 mg/dl (70-220); POTASSIUM 3.5 mmol/L (3.5-5.1); SODIUM 135 mmol/L (135-144)
[2017-05-25] MEDS: PANTOPRAZOLE 40 MG INJ IV (09:16)
[2017-05-25] MEDS: morphine 4 MG/ML VIAL IV (23:53)
[2017-05-26] MEDS: METOCLOPRAMIDE 10 MG INJ IV ×5 (00:56→23:16)
[2017-05-26] MEDS: D5W-0.45 NACL + KCL 20 MEQ 1,000 ML IV ×2 (00:56→17:53)
[2017-05-26] MEDS: ALBUTEROL/IPRATROPIUM (NEB) 3 ML AMP HHN ×4 (01:19→19:49)
[2017-05-26] MEDS: morphine 4 MG/ML VIAL IV ×6 (02:29→23:16)
[2017-05-26] MEDS: PANTOPRAZOLE 40 MG INJ IV (08:39)
[2017-05-27] MEDS: ALBUTEROL/IPRATROPIUM (NEB) 3 ML AMP HHN ×4 (01:14→20:12)
[2017-05-27] MEDS: morphine 4 MG/ML VIAL IV ×6 (01:14→19:52)
[2017-05-27] MEDS: morphine 2 MG INJ IV (03:42)
[2017-05-27] MEDS: METOCLOPRAMIDE 10 MG INJ IV ×3 (05:20→17:30)
[2017-05-27] MEDS: PANTOPRAZOLE 40 MG INJ IV (08:36)
[2017-05-27] MEDS: D5W-0.45 NACL + KCL 20 MEQ 1,000 ML IV (14:26)
[2017-05-28] MEDS: METOCLOPRAMIDE 10 MG INJ IV ×5 (00:26→23:50)
[2017-05-28] MEDS: morphine 2 MG INJ IV (02:04)
[2017-05-28] MEDS: ALBUTEROL/IPRATROPIUM (NEB) 3 ML AMP HHN ×4 (02:19→20:59)
[2017-05-28] MEDS: morphine 4 MG/ML VIAL IV ×6 (04:28→22:50)
[2017-05-28 05:38] LABS: WHITE BLOOD COUNT 6.6 10^3/ul (4.8-10.8)
[2017-05-28 05:38] LABS: HEMATOCRIT 31.7 % (37.0-47.0); MEAN CORPUSCULAR HEMOGLOBIN 26.7 pg (29.0-33.0); MEAN CORPUSCULAR HGB CONC 31.5 g/dl (32.0-37.0); MEAN CORPUSCULAR VOLUME 84.5 fl (82.0-101.0); MEAN PLATELET VOLUME 11.8 fl (7.4-10.4); PLATELET COUNT 378 10^3/UL (140-415); RED BLOOD COUNT 3.75 10^6/ul (4.20-5.40); RED CELL DISTRIBUTION WIDTH 16.4 % (11.5-14.5)
[2017-05-28 05:47] LABS: POSITIVE DIFF @See below
[2017-05-28 05:48] LABS: ADD MAN DIFF? YES
[2017-05-28 06:33] LABS: ANION GAP 9 (8-16); CARBON DIOXIDE 29 mmol/L (21-31); CHLORIDE 100 mmol/L (97-110); CREATININE 0.47 mg/dl (0.44-1.00); GLUCOSE 114 mg/dl (70-220); SODIUM 135 mmol/L (135-144)
[2017-05-28 06:43] LABS: BLOOD UREA NITROGEN < 2 mg/dl (7-20); POTASSIUM 2.9 mmol/L (3.5-5.1)
[2017-05-28] MEDS: POTASSIUM CHLORIDE (SR) 20 MEQ TAB PO ×3 (07:30→11:04)
[2017-05-28] MEDS: PANTOPRAZOLE 40 MG INJ IV (08:17)
[2017-05-28 10:13] LABS: ANISOCYTOSIS 2+ (0-0); BAND NEUTROPHILS #M 0.1 10^3/ul (0.0-0.6); BAND NEUTROPHILS % (M) 2 % (0-4); GIANT THROMBO% (M) 1 % (0-0); HYPOCHROMASIA 1+ (0-0); LYMPHOCYTES #M 0.5 10^3/ul (0.8-2.9); LYMPHOCYTES % (M) 8 % (15-51); METAMYELOCYTES %M 1 % (0-0); MONOCYTE #M 1.6 10^3/ul (0.3-0.9); MONOCYTES % (M) 25 % (0-11); PLATELET ESTIMATE NORMAL; POIKILOCYTOSIS 1+ (0-0); POLYCHROMASIA 3+ (0-0); REACTIVE LYMPHOCYTES #M 0.1 10^3/ul (0.0-0.0); REACTIVE LYMPHOCYTES% (M) 3 % (0-0); SEGMENTED NEUTROPHILS (M) % 61 % (39-77); SMUDGE%M 3 % (0-0)
[2017-05-28] MEDS: D5W-0.45 NACL + KCL 20 MEQ 1,000 ML IV (10:44)
[2017-05-28] MEDS ORDERED: POTASSIUM CHLORIDE (SR) 20 MEQ TAB PO (11:00)
[2017-05-28] MEDS: D5W-0.45 NACL + KCL 40 MEQ 1,000 ML IV ×2 (13:47→21:30)
[2017-05-29] MEDS: morphine 4 MG/ML VIAL IV ×4 (00:56→17:50)
[2017-05-29] MEDS: D5W-0.45 NACL + KCL 40 MEQ 1,000 ML IV ×3 (00:57→17:30)
[2017-05-29] MEDS: ALBUTEROL/IPRATROPIUM (NEB) 3 ML AMP HHN ×4 (02:19→19:19)
[2017-05-29] MEDS: METOCLOPRAMIDE 10 MG INJ IV ×4 (05:53→23:59)
[2017-05-29 06:30] LABS: ADD MAN DIFF? NO
[2017-05-29 06:37] LABS: WHITE BLOOD COUNT 10.9 10^3/ul (4.8-10.8)
[2017-05-29 06:37] LABS: ABNORMAL IP MESSAGE 1; BASOPHILS % 0.4 % (0.0-2.0); EOSINOPHILS # 0.1 10^3/ul (0.0-0.5); EOSINOPHILS % 0.6 % (0.0-7.0); HEMATOCRIT 31.6 % (37.0-47.0); HEMOGLOBIN 10.3 g/dl (12.0-16.0); LYMPHOCYTES # 1.3 10^3/ul (0.8-2.9); LYMPHOCYTES % 11.7 % (15.0-51.0); MEAN CORPUSCULAR HGB CONC 32.6 g/dl (32.0-37.0); MEAN CORPUSCULAR VOLUME 82.9 fl (82.0-101.0); MEAN PLATELET VOLUME 12.3 fl (7.4-10.4); MONOCYTE # 1.8 10^3/ul (0.3-0.9); NEUTROPHIL # 7.6 10^3/ul (1.6-7.5); NEUTROPHILS % 69.7 % (39.0-77.0); NUCLEATED RED BLOOD CELLS% 0.4 /100WBC (0.0-0.0); PLATELET COUNT 327 10^3/UL (140-415); RED BLOOD COUNT 3.81 10^6/ul (4.20-5.40); RED CELL DISTRIBUTION WIDTH 16.4 % (11.5-14.5)
[2017-05-29 06:48] LABS: POSITIVE DIFF @See below
[2017-05-29 07:41] LABS: ANION GAP 10 (8-16); BLOOD UREA NITROGEN 2 mg/dl (7-20); CALCIUM 8.3 mg/dl (8.4-10.2); CARBON DIOXIDE 27 mmol/L (21-31); CHLORIDE 102 mmol/L (97-110); CREATININE 0.47 mg/dl (0.44-1.00); GLUCOSE 117 mg/dl (70-220); POTASSIUM 3.8 mmol/L (3.5-5.1); SODIUM 135 mmol/L (135-144)
[2017-05-29] MEDS: PANTOPRAZOLE 40 MG INJ IV (09:15)
[2017-05-30] MEDS: ALBUTEROL/IPRATROPIUM (NEB) 3 ML AMP HHN ×4 (01:50→19:12)
[2017-05-30] MEDS: LORAZEPAM 2 MG INJ IV ×2 (03:46→23:12)
[2017-05-30] MEDS: D5W-0.45 NACL + KCL 40 MEQ 1,000 ML IV ×3 (03:46→23:37)
[2017-05-30] MEDS: METOCLOPRAMIDE 10 MG INJ IV ×4 (06:13→23:37)
[2017-05-30] MEDS: PANTOPRAZOLE 40 MG INJ IV ×2 (08:48→10:55)
[2017-05-31] MEDS: ALBUTEROL/IPRATROPIUM (NEB) 3 ML AMP HHN ×4 (02:00→20:46)
[2017-05-31] MEDS: METOCLOPRAMIDE 10 MG INJ IV ×3 (05:57→17:53)
[2017-05-31] MEDS: morphine 2 MG INJ IV (06:00)
[2017-05-31] MEDS: D5W-0.45 NACL + KCL 40 MEQ 1,000 ML IV ×2 (09:28→14:42)
[2017-05-31] MEDS: PANTOPRAZOLE 40 MG INJ IV (09:28)
[2017-05-31] MEDS: morphine 4 MG/ML VIAL IV ×2 (14:42→22:17)
[2017-06-01] MEDS: METOCLOPRAMIDE 10 MG INJ IV ×4 (00:06→17:39)
[2017-06-01] MEDS: ALBUTEROL/IPRATROPIUM (NEB) 3 ML AMP HHN ×4 (02:12→20:40)
[2017-06-01] MEDS: D5W-0.45 NACL + KCL 40 MEQ 1,000 ML IV ×2 (02:44→15:30)
[2017-06-01] MEDS: morphine 2 MG INJ IV ×3 (04:06→18:32)
[2017-06-01 06:21] LABS: ADD MAN DIFF? NO
[2017-06-01 06:29] LABS: ABNORMAL IP MESSAGE 1; BASOPHILS % 0.2 % (0.0-2.0); EOSINOPHILS # 0.1 10^3/ul (0.0-0.5); EOSINOPHILS % 0.6 % (0.0-7.0); HEMATOCRIT 30.7 % (37.0-47.0); HEMOGLOBIN 9.9 g/dl (12.0-16.0); LYMPHOCYTES # 1.3 10^3/ul (0.8-2.9); MEAN CORPUSCULAR HEMOGLOBIN 26.9 pg (29.0-33.0); MEAN CORPUSCULAR HGB CONC 32.2 g/dl (32.0-37.0); MEAN CORPUSCULAR VOLUME 83.4 fl (82.0-101.0); MONOCYTES % 19.4 % (0.0-11.0); NUCLEATED RED BLOOD CELLS% 0.4 /100WBC (0.0-0.0); PLATELET COUNT 211 10^3/UL (140-415); RED BLOOD COUNT 3.68 10^6/ul (4.20-5.40); RED CELL DISTRIBUTION WIDTH 16.8 % (11.5-14.5)
[2017-06-01 06:29] LABS: WHITE BLOOD COUNT 10.5 10^3/ul (4.8-10.8)
[2017-06-01 06:31] LABS: POSITIVE DIFF @See below
[2017-06-01 07:08] LABS: ANION GAP 11 (8-16); BLOOD UREA NITROGEN 5 mg/dl (7-20); CALCIUM 7.9 mg/dl (8.4-10.2); CARBON DIOXIDE 22 mmol/L (21-31); CHLORIDE 106 mmol/L (97-110); CREATININE 0.54 mg/dl (0.44-1.00); GLUCOSE 93 mg/dl (70-220); POTASSIUM 3.7 mmol/L (3.5-5.1); SODIUM 135 mmol/L (135-144)
[2017-06-01] MEDS: morphine 4 MG/ML VIAL IV ×4 (08:43→14:04)
[2017-06-01] MEDS: PANTOPRAZOLE 40 MG INJ IV (08:43)
[2017-06-01] MEDS ORDERED: VANCOMYCIN IV PER PHARMACY XX (12:30)
[2017-06-01] MEDS ORDERED: PIPER-TAZO 3.375 GM IV (PMX) 50 ML (12:51)
[2017-06-01] MEDS: PIPER-TAZO 3.375 GM IV (PMX) 50 ML IVPB ×2 (13:08→17:39)
[2017-06-01] MEDS ORDERED: VANCOMYCIN 1.75 GM in NS 500 ML IVPB (14:00)
[2017-06-02] MEDS: METOCLOPRAMIDE 10 MG INJ IV ×5 (00:05→23:26)
[2017-06-02] MEDS: LORAZEPAM 2 MG INJ IV ×2 (00:05→17:12)
[2017-06-02] MEDS: PIPER-TAZO 3.375 GM IV (PMX) 50 ML IVPB ×5 (00:30→23:27)
[2017-06-02] MEDS: D5W-0.45 NACL + KCL 40 MEQ 1,000 ML IV ×5 (01:30→21:30)
[2017-06-02] MEDS: ALBUTEROL/IPRATROPIUM (NEB) 3 ML AMP HHN ×4 (02:00→21:20)
[2017-06-02] MEDS: PANTOPRAZOLE 40 MG INJ IV (08:58)
[2017-06-02] MEDS: morphine 2 MG INJ IV ×2 (14:39→23:26)
[2017-06-03] MEDS: ALBUTEROL/IPRATROPIUM (NEB) 3 ML AMP HHN ×4 (01:36→19:39)
[2017-06-03] MEDS: D5W-0.45 NACL + KCL 40 MEQ 1,000 ML IV ×2 (02:47→17:33)
[2017-06-03] MEDS: PIPER-TAZO 3.375 GM IV (PMX) 50 ML IVPB ×4 (05:15→23:38)
[2017-06-03] MEDS: METOCLOPRAMIDE 10 MG INJ IV ×4 (05:15→23:38)
[2017-06-03 05:34] LABS: ADD MAN DIFF? NO
[2017-06-03 05:40] LABS: ABNORMAL IP MESSAGE 1; BASOPHIL # 0.1 10^3/ul (0.0-0.1); BASOPHILS % 0.5 % (0.0-2.0); EOSINOPHILS # 0.2 10^3/ul (0.0-0.5); EOSINOPHILS % 1.5 % (0.0-7.0); HEMOGLOBIN 9.3 g/dl (12.0-16.0); LYMPHOCYTES # 0.9 10^3/ul (0.8-2.9); LYMPHOCYTES % 9.4 % (15.0-51.0); MEAN CORPUSCULAR HEMOGLOBIN 27.4 pg (29.0-33.0); MEAN CORPUSCULAR HGB CONC 33.2 g/dl (32.0-37.0); MEAN CORPUSCULAR VOLUME 82.4 fl (82.0-101.0); MEAN PLATELET VOLUME 11.9 fl (7.4-10.4); MONOCYTE # 1.9 10^3/ul (0.3-0.9); MONOCYTES % 18.5 % (0.0-11.0); NEUTROPHILS % 69.4 % (39.0-77.0); NUCLEATED RED BLOOD CELLS% 0.2 /100WBC (0.0-0.0); PLATELET COUNT 198 10^3/UL (140-415); RED CELL DISTRIBUTION WIDTH 17.2 % (11.5-14.5)
[2017-06-03 05:55] LABS: POSITIVE DIFF @See below
[2017-06-03 06:18] LABS: ANION GAP 11 (8-16); BLOOD UREA NITROGEN 2 mg/dl (7-20); CALCIUM 7.8 mg/dl (8.4-10.2); CARBON DIOXIDE 22 mmol/L (21-31); CHLORIDE 107 mmol/L (97-110); CREATININE 0.59 mg/dl (0.44-1.00); GLUCOSE 101 mg/dl (70-220); POTASSIUM 3.6 mmol/L (3.5-5.1); SODIUM 136 mmol/L (135-144)
[2017-06-03] MEDS: morphine 2 MG INJ IV ×3 (07:46→22:45)
[2017-06-03] MEDS: PANTOPRAZOLE 40 MG INJ IV (09:00)
[2017-06-03] MEDS ORDERED: MIDAZOLAM 1 MG/ML 2 ML INJ (09:51)
[2017-06-03] MEDS ORDERED: FENTAnyl 50 MCG/ML VIAL ×3 (09:51→10:40)
[2017-06-03] MEDS ORDERED: PROPOFOL 20 ML (10:00)
[2017-06-03] MEDS: LORAZEPAM 2 MG INJ IV (12:42)
[2017-06-04] MEDS: ALBUTEROL/IPRATROPIUM (NEB) 3 ML AMP HHN ×4 (01:39→23:55)
[2017-06-04] MEDS: LORAZEPAM 2 MG INJ IV (02:20)
[2017-06-04] MEDS: METOCLOPRAMIDE 10 MG INJ IV ×4 (05:36→23:21)
[2017-06-04] MEDS: PIPER-TAZO 3.375 GM IV (PMX) 50 ML IVPB ×4 (05:36→23:21)
[2017-06-04 06:43] LABS: ADD MAN DIFF? NO
[2017-06-04 06:51] LABS: WHITE BLOOD COUNT 10.4 10^3/ul (4.8-10.8)
[2017-06-04 06:51] LABS: ABNORMAL IP MESSAGE 1; BASOPHIL # 0.1 10^3/ul (0.0-0.1); BASOPHILS % 0.8 % (0.0-2.0); EOSINOPHILS # 0.2 10^3/ul (0.0-0.5); EOSINOPHILS % 1.6 % (0.0-7.0); HEMATOCRIT 30.6 % (37.0-47.0); HEMOGLOBIN 10.1 g/dl (12.0-16.0); LYMPHOCYTES # 1.2 10^3/ul (0.8-2.9); LYMPHOCYTES % 11.5 % (15.0-51.0); MEAN CORPUSCULAR HEMOGLOBIN 27.2 pg (29.0-33.0); MEAN CORPUSCULAR VOLUME 82.5 fl (82.0-101.0); MEAN PLATELET VOLUME 11.7 fl (7.4-10.4); MONOCYTE # 1.9 10^3/ul (0.3-0.9); NEUTROPHILS % 67.3 % (39.0-77.0); NUCLEATED RED BLOOD CELLS% 0.3 /100WBC (0.0-0.0); PLATELET COUNT 254 10^3/UL (140-415); RED BLOOD COUNT 3.71 10^6/ul (4.20-5.40); RED CELL DISTRIBUTION WIDTH 17.3 % (11.5-14.5)
[2017-06-04] MEDS: D5W-0.45 NACL + KCL 40 MEQ 1,000 ML IV ×3 (06:52→23:21)
[2017-06-04 07:08] LABS: POSITIVE DIFF @See below
[2017-06-04 07:12] LABS: ANION GAP 12 (8-16); CARBON DIOXIDE 23 mmol/L (21-31); CHLORIDE 107 mmol/L (97-110); CREATININE 0.63 mg/dl (0.44-1.00); GLUCOSE 89 mg/dl (70-220); POTASSIUM 3.5 mmol/L (3.5-5.1); SODIUM 138 mmol/L (135-144)
[2017-06-04 07:21] LABS: BLOOD UREA NITROGEN < 2 mg/dl (7-20)
[2017-06-04] MEDS: PANTOPRAZOLE 40 MG INJ IV (10:33)
[2017-06-05] MEDS: LORAZEPAM 2 MG INJ IV (02:21)
[2017-06-05] MEDS: ALBUTEROL/IPRATROPIUM (NEB) 3 ML AMP HHN ×4 (03:51→21:20)
[2017-06-05] MEDS: PIPER-TAZO 3.375 GM IV (PMX) 50 ML IVPB ×4 (05:39→23:51)
[2017-06-05] MEDS: METOCLOPRAMIDE 10 MG INJ IV ×5 (05:39→23:51)
[2017-06-05] MEDS ORDERED: LIDOCAINE 1% (MPF) 30 ML INJ INJ (07:30)
[2017-06-05 08:12] LABS: ADD MAN DIFF? NO
[2017-06-05 08:14] LABS: WHITE BLOOD COUNT 8.6 10^3/ul (4.8-10.8)
[2017-06-05 08:14] LABS: BASOPHIL # 0.1 10^3/ul (0.0-0.1); BASOPHILS % 0.7 % (0.0-2.0); EOSINOPHILS # 0.1 10^3/ul (0.0-0.5); EOSINOPHILS % 1.4 % (0.0-7.0); HEMATOCRIT 26.6 % (37.0-47.0); HEMOGLOBIN 8.9 g/dl (12.0-16.0); LYMPHOCYTES # 0.9 10^3/ul (0.8-2.9); LYMPHOCYTES % 10.4 % (15.0-51.0); MEAN CORPUSCULAR HEMOGLOBIN 27.6 pg (29.0-33.0); MEAN CORPUSCULAR HGB CONC 33.5 g/dl (32.0-37.0); MEAN CORPUSCULAR VOLUME 82.6 fl (82.0-101.0); MEAN PLATELET VOLUME 11.9 fl (7.4-10.4); MONOCYTE # 1.5 10^3/ul (0.3-0.9); MONOCYTES % 17.5 % (0.0-11.0); NEUTROPHILS % 69.4 % (39.0-77.0); NUCLEATED RED BLOOD CELLS # 0.1 10^3/ul (0.0-0.0); NUCLEATED RED BLOOD CELLS% 0.8 /100WBC (0.0-0.0); PLATELET COUNT 248 10^3/UL (140-415); RED BLOOD COUNT 3.22 10^6/ul (4.20-5.40); RED CELL DISTRIBUTION WIDTH 17.8 % (11.5-14.5)
[2017-06-05 08:58] LABS: ANION GAP 13 (8-16); BLOOD UREA NITROGEN 2 mg/dl (7-20); CALCIUM 7.8 mg/dl (8.4-10.2); CARBON DIOXIDE 21 mmol/L (21-31); CHLORIDE 109 mmol/L (97-110); CREATININE 0.59 mg/dl (0.44-1.00); GLUCOSE 82 mg/dl (70-220); POTASSIUM 3.2 mmol/L (3.5-5.1); SODIUM 140 mmol/L (135-144)
[2017-06-05] MEDS: D5W-0.45 NACL + KCL 40 MEQ 1,000 ML IV ×2 (08:59→23:29)
[2017-06-05] MEDS: PANTOPRAZOLE 40 MG INJ IV (09:00)
[2017-06-05] MEDS ORDERED: POTASSIUM CHLORIDE 40 MEQ in SOD CHLORIDE 0.9% 150 ML IVPB (10:30)
[2017-06-05] MEDS: POTASSIUM CHLORIDE 50 ML IVPB ×2 (13:23→15:32)
[2017-06-06] MEDS: ALBUTEROL/IPRATROPIUM (NEB) 3 ML AMP HHN ×4 (02:17→20:12)
[2017-06-06] MEDS: METOCLOPRAMIDE 10 MG INJ IV ×4 (05:18→23:52)
[2017-06-06] MEDS: PIPER-TAZO 3.375 GM IV (PMX) 50 ML IVPB ×4 (05:18→23:52)
[2017-06-06 05:57] LABS: ADD MAN DIFF? NO
[2017-06-06 06:03] LABS: WHITE BLOOD COUNT 8.5 10^3/ul (4.8-10.8)
[2017-06-06 06:03] LABS: ABNORMAL IP MESSAGE 1; BASOPHILS % 0.5 % (0.0-2.0); EOSINOPHILS # 0.1 10^3/ul (0.0-0.5); EOSINOPHILS % 0.9 % (0.0-7.0); HEMATOCRIT 29.8 % (37.0-47.0); HEMOGLOBIN 9.7 g/dl (12.0-16.0); LYMPHOCYTES # 1.1 10^3/ul (0.8-2.9); MEAN CORPUSCULAR HEMOGLOBIN 26.6 pg (29.0-33.0); MEAN CORPUSCULAR HGB CONC 32.6 g/dl (32.0-37.0); MEAN CORPUSCULAR VOLUME 81.6 fl (82.0-101.0); MEAN PLATELET VOLUME 11.4 fl (7.4-10.4); MONOCYTE # 1.6 10^3/ul (0.3-0.9); MONOCYTES % 18.3 % (0.0-11.0); NEUTROPHIL # 5.7 10^3/ul (1.6-7.5); NEUTROPHILS % 66.8 % (39.0-77.0); NUCLEATED RED BLOOD CELLS # 0.1 10^3/ul (0.0-0.0); NUCLEATED RED BLOOD CELLS% 0.9 /100WBC (0.0-0.0); PLATELET COUNT 296 10^3/UL (140-415); RED BLOOD COUNT 3.65 10^6/ul (4.20-5.40); RED CELL DISTRIBUTION WIDTH 18.4 % (11.5-14.5)
[2017-06-06 06:30] LABS: ANION GAP 15 (8-16); CALCIUM 7.5 mg/dl (8.4-10.2); CARBON DIOXIDE 21 mmol/L (21-31); CHLORIDE 109 mmol/L (97-110); CREATININE 0.58 mg/dl (0.44-1.00); GLUCOSE 82 mg/dl (70-220); POTASSIUM 3.6 mmol/L (3.5-5.1); SODIUM 141 mmol/L (135-144)
[2017-06-06 06:35] LABS: POSITIVE DIFF @See below
[2017-06-06 07:16] LABS: BLOOD UREA NITROGEN < 2 mg/dl (7-20)
[2017-06-06] MEDS: D5W-0.45 NACL + KCL 40 MEQ 1,000 ML IV ×3 (07:30→12:51)
[2017-06-06] MEDS: PANTOPRAZOLE 40 MG INJ IV (08:58)
[2017-06-06] MEDS: ENOXAPARIN 40 MG/0.4 ML SYG SC (17:59)
[2017-06-07] MEDS: ALBUTEROL/IPRATROPIUM (NEB) 3 ML AMP HHN ×4 (02:00→19:34)
[2017-06-07 05:32] LABS: ADD MAN DIFF? NO
[2017-06-07 05:34] LABS: BASOPHIL # 0.1 10^3/ul (0.0-0.1); BASOPHILS % 0.8 % (0.0-2.0); EOSINOPHILS # 0.1 10^3/ul (0.0-0.5); EOSINOPHILS % 1.3 % (0.0-7.0); HEMATOCRIT 29.1 % (37.0-47.0); HEMOGLOBIN 9.5 g/dl (12.0-16.0); LYMPHOCYTES # 1.2 10^3/ul (0.8-2.9); LYMPHOCYTES % 16.1 % (15.0-51.0); MEAN CORPUSCULAR HEMOGLOBIN 26.8 pg (29.0-33.0); MEAN CORPUSCULAR HGB CONC 32.6 g/dl (32.0-37.0); MEAN PLATELET VOLUME 11.4 fl (7.4-10.4); MONOCYTE # 1.3 10^3/ul (0.3-0.9); MONOCYTES % 17.5 % (0.0-11.0); NEUTROPHIL # 4.6 10^3/ul (1.6-7.5); NEUTROPHILS % 63.6 % (39.0-77.0); NUCLEATED RED BLOOD CELLS # 0.1 10^3/ul (0.0-0.0); NUCLEATED RED BLOOD CELLS% 1.4 /100WBC (0.0-0.0); PLATELET COUNT 314 10^3/UL (140-415); RED BLOOD COUNT 3.55 10^6/ul (4.20-5.40); RED CELL DISTRIBUTION WIDTH 18.4 % (11.5-14.5)
[2017-06-07 05:34] LABS: WHITE BLOOD COUNT 7.2 10^3/ul (4.8-10.8)
[2017-06-07] MEDS: METOCLOPRAMIDE 10 MG INJ IV ×4 (05:36→23:44)
[2017-06-07] MEDS: PIPER-TAZO 3.375 GM IV (PMX) 50 ML IVPB ×4 (05:36→23:44)
[2017-06-07 06:39] LABS: ALANINE AMINOTRANSFERASE 34 IU/L (13-69); ALBUMIN 2.1 g/dl (3.3-4.9); ALBUMIN/GLOBULIN RATIO 0.63; ALKALINE PHOSPHATASE 135 IU/L (42-121); ANION GAP 13 (8-16); ASPARTATE AMINO TRANSFERASE 29 IU/L (15-46); BILIRUBIN,INDIRECT 0.6 mg/dl (0-1.1); BILIRUBIN,TOTAL 0.6 mg/dl (0.2-1.3); CALCIUM 7.5 mg/dl (8.4-10.2); CARBON DIOXIDE 21 mmol/L (21-31); CHLORIDE 110 mmol/L (97-110); CREATININE 0.63 mg/dl (0.44-1.00); GLUCOSE 94 mg/dl (70-220); POTASSIUM 3.5 mmol/L (3.5-5.1); SODIUM 140 mmol/L (135-144); TOTAL PROTEIN 5.4 g/dl (6.1-8.1)
[2017-06-07 06:42] LABS: BLOOD UREA NITROGEN < 2 mg/dl (7-20)
[2017-06-07] MEDS: D5W-0.45 NACL + KCL 40 MEQ 1,000 ML IV ×4 (07:30→23:51)
[2017-06-07] MEDS: PANTOPRAZOLE 40 MG INJ IV (09:43)
[2017-06-07] MEDS: ENOXAPARIN 40 MG/0.4 ML SYG SC (09:44)
[2017-06-07] MEDS: BARIUM SULF 2% 450 ML BTL (BERRY SMOOTHIE) PO ×2 (16:30→16:34)
[2017-06-08] MEDS: LORAZEPAM 2 MG INJ IV (01:29)
[2017-06-08] MEDS: ALBUTEROL/IPRATROPIUM (NEB) 3 ML AMP HHN ×4 (02:00→19:40)
[2017-06-08] MEDS: METOCLOPRAMIDE 10 MG INJ IV ×4 (05:37→23:54)
[2017-06-08] MEDS: PIPER-TAZO 3.375 GM IV (PMX) 50 ML IVPB ×4 (05:37→23:54)
[2017-06-08] MEDS: PANTOPRAZOLE 40 MG INJ IV (09:03)
[2017-06-08] MEDS: ENOXAPARIN 40 MG/0.4 ML SYG SC (09:04)
[2017-06-08] MEDS: D5W-0.45 NACL + KCL 40 MEQ 1,000 ML IV ×2 (12:29→21:24)
[2017-06-09] MEDS: morphine 2 MG INJ IV (00:41)
[2017-06-09] MEDS: ALBUTEROL/IPRATROPIUM (NEB) 3 ML AMP HHN ×4 (01:42→20:13)
[2017-06-09] MEDS: D5W-0.45 NACL + KCL 40 MEQ 1,000 ML IV ×2 (03:37→16:18)
[2017-06-09 05:39] LABS: ADD MAN DIFF? NO
[2017-06-09 05:43] LABS: WHITE BLOOD COUNT 6.6 10^3/ul (4.8-10.8)
[2017-06-09 05:43] LABS: BASOPHIL # 0.1 10^3/ul (0.0-0.1); BASOPHILS % 0.9 % (0.0-2.0); EOSINOPHILS # 0.2 10^3/ul (0.0-0.5); EOSINOPHILS % 2.6 % (0.0-7.0); HEMATOCRIT 28.8 % (37.0-47.0); HEMOGLOBIN 9.5 g/dl (12.0-16.0); LYMPHOCYTES # 1.2 10^3/ul (0.8-2.9); LYMPHOCYTES % 18.8 % (15.0-51.0); MEAN CORPUSCULAR HEMOGLOBIN 27.2 pg (29.0-33.0); MEAN CORPUSCULAR VOLUME 82.5 fl (82.0-101.0); MEAN PLATELET VOLUME 11.6 fl (7.4-10.4); MONOCYTE # 1.1 10^3/ul (0.3-0.9); MONOCYTES % 16.8 % (0.0-11.0); NEUTROPHIL # 3.9 10^3/ul (1.6-7.5); NUCLEATED RED BLOOD CELLS # 0.1 10^3/ul (0.0-0.0); PLATELET COUNT 325 10^3/UL (140-415); RED BLOOD COUNT 3.49 10^6/ul (4.20-5.40); RED CELL DISTRIBUTION WIDTH 19.1 % (11.5-14.5)
[2017-06-09] MEDS: PIPER-TAZO 3.375 GM IV (PMX) 50 ML IVPB ×3 (05:53→18:05)
[2017-06-09] MEDS: METOCLOPRAMIDE 10 MG INJ IV ×3 (05:53→18:00)
[2017-06-09 06:33] LABS: ANION GAP 12 (8-16); CALCIUM 7.6 mg/dl (8.4-10.2); CARBON DIOXIDE 22 mmol/L (21-31); CHLORIDE 111 mmol/L (97-110); CREATININE 0.62 mg/dl (0.44-1.00); GLUCOSE 92 mg/dl (70-220); POTASSIUM 3.2 mmol/L (3.5-5.1); SODIUM 142 mmol/L (135-144)
[2017-06-09 06:37] LABS: BLOOD UREA NITROGEN < 2 mg/dl (7-20)
[2017-06-09] MEDS: PANTOPRAZOLE 40 MG INJ IV (09:56)
[2017-06-09] MEDS: ENOXAPARIN 40 MG/0.4 ML SYG SC (10:32)
[2017-06-09] MEDS: LORAZEPAM 2 MG INJ IV (16:18)
[2017-06-10] MEDS: PIPER-TAZO 3.375 GM IV (PMX) 50 ML IVPB ×4 (00:18→17:38)
[2017-06-10] MEDS: ALTEPLASE (CATHFLO) 2 MG INJ CATHETER ×2 (00:18→00:45)
[2017-06-10] MEDS: METOCLOPRAMIDE 10 MG INJ IV ×4 (00:18→17:38)
[2017-06-10] MEDS: ALBUTEROL/IPRATROPIUM (NEB) 3 ML AMP HHN ×4 (01:22→19:40)
[2017-06-10] MEDS: D5W-0.45 NACL + KCL 40 MEQ 1,000 ML IV ×3 (03:45→17:42)
[2017-06-10 06:08] LABS: ADD MAN DIFF? NO
[2017-06-10 06:40] LABS: WHITE BLOOD COUNT 7.7 10^3/ul (4.8-10.8)
[2017-06-10 06:40] LABS: BASOPHIL # 0.1 10^3/ul (0.0-0.1); BASOPHILS % 1.2 % (0.0-2.0); EOSINOPHILS # 0.4 10^3/ul (0.0-0.5); EOSINOPHILS % 4.5 % (0.0-7.0); HEMOGLOBIN 10.1 g/dl (12.0-16.0); MEAN CORPUSCULAR HEMOGLOBIN 27.1 pg (29.0-33.0); MEAN CORPUSCULAR HGB CONC 33.7 g/dl (32.0-37.0); MEAN CORPUSCULAR VOLUME 80.4 fl (82.0-101.0); MEAN PLATELET VOLUME 11.6 fl (7.4-10.4); MONOCYTE # 1.2 10^3/ul (0.3-0.9); MONOCYTES % 15.4 % (0.0-11.0); NEUTROPHIL # 5.1 10^3/ul (1.6-7.5); NEUTROPHILS % 65.4 % (39.0-77.0); NUCLEATED RED BLOOD CELLS # 0.1 10^3/ul (0.0-0.0); NUCLEATED RED BLOOD CELLS% 1.2 /100WBC (0.0-0.0); PLATELET COUNT 290 10^3/UL (140-415); RED BLOOD COUNT 3.73 10^6/ul (4.20-5.40)
[2017-06-10 07:11] LABS: ANION GAP 15 (8-16); CALCIUM 7.9 mg/dl (8.4-10.2); CARBON DIOXIDE 20 mmol/L (21-31); CHLORIDE 111 mmol/L (97-110); CREATININE 0.53 mg/dl (0.44-1.00); GLUCOSE 89 mg/dl (70-220); POTASSIUM 3.5 mmol/L (3.5-5.1); SODIUM 142 mmol/L (135-144)
[2017-06-10 07:20] LABS: BLOOD UREA NITROGEN < 2 mg/dl (7-20)
[2017-06-10] MEDS: PANTOPRAZOLE 40 MG INJ IV (08:55)
[2017-06-10] MEDS: ENOXAPARIN 40 MG/0.4 ML SYG SC (08:56)
[2017-06-10] MEDS: metroNIDAZOLE 500 MG TAB PO ×2 (12:58→17:39)
[2017-06-10] MEDS: LORAZEPAM 2 MG INJ IV (14:20)
[2017-06-10] MEDS: VANCOMYCIN HCL 250 MG/5ML POSYG PO ×2 (15:39→17:39)
[2017-06-11] MEDS: PIPER-TAZO 3.375 GM IV (PMX) 50 ML IVPB ×5 (00:15→23:41)
[2017-06-11] MEDS: VANCOMYCIN HCL 250 MG/5ML POSYG PO ×5 (00:15→23:42)
[2017-06-11] MEDS: METOCLOPRAMIDE 10 MG INJ IV ×3 (00:15→12:00)
[2017-06-11] MEDS: metroNIDAZOLE 500 MG TAB PO ×3 (00:15→12:37)
[2017-06-11] MEDS: ALBUTEROL/IPRATROPIUM (NEB) 3 ML AMP HHN ×4 (01:08→19:33)
[2017-06-11] MEDS: LORAZEPAM 2 MG INJ IV (01:28)
[2017-06-11 05:04] LABS: ADD MAN DIFF? NO
[2017-06-11 05:12] LABS: BASOPHIL # 0.1 10^3/ul (0.0-0.1); BASOPHILS % 0.8 % (0.0-2.0); EOSINOPHILS # 0.5 10^3/ul (0.0-0.5); EOSINOPHILS % 5.9 % (0.0-7.0); HEMOGLOBIN 8.9 g/dl (12.0-16.0); LYMPHOCYTES # 1.1 10^3/ul (0.8-2.9); LYMPHOCYTES % 14.5 % (15.0-51.0); MEAN CORPUSCULAR HEMOGLOBIN 27.1 pg (29.0-33.0); MEAN CORPUSCULAR VOLUME 82.1 fl (82.0-101.0); MEAN PLATELET VOLUME 11.6 fl (7.4-10.4); MONOCYTE # 1.2 10^3/ul (0.3-0.9); MONOCYTES % 15.6 % (0.0-11.0); NEUTROPHIL # 4.9 10^3/ul (1.6-7.5); NEUTROPHILS % 62.7 % (39.0-77.0); NUCLEATED RED BLOOD CELLS # 0.1 10^3/ul (0.0-0.0); NUCLEATED RED BLOOD CELLS% 0.9 /100WBC (0.0-0.0); PLATELET COUNT 317 10^3/UL (140-415); RED BLOOD COUNT 3.29 10^6/ul (4.20-5.40); RED CELL DISTRIBUTION WIDTH 20.4 % (11.5-14.5)
[2017-06-11 05:12] LABS: WHITE BLOOD COUNT 7.8 10^3/ul (4.8-10.8)
[2017-06-11] MEDS: D5W-0.45 NACL + KCL 40 MEQ 1,000 ML IV ×2 (05:47→17:11)
[2017-06-11 05:59] LABS: ANION GAP 11 (8-16); CARBON DIOXIDE 23 mmol/L (21-31); CHLORIDE 109 mmol/L (97-110); CREATININE 0.55 mg/dl (0.44-1.00); GLUCOSE 94 mg/dl (70-220); POTASSIUM 3.1 mmol/L (3.5-5.1); SODIUM 140 mmol/L (135-144)
[2017-06-11 06:32] LABS: BLOOD UREA NITROGEN < 2 mg/dl (7-20)
[2017-06-11] MEDS: PANTOPRAZOLE 40 MG INJ IV (08:55)
[2017-06-11] MEDS: ENOXAPARIN 40 MG/0.4 ML SYG SC (08:56)
[2017-06-11] MEDS ORDERED: POTASSIUM CHLORIDE 20 MEQ in DEXTROSE 5% 100 ML IVPB (11:30)
[2017-06-11] MEDS: POTASSIUM CHLORIDE (SR) 20 MEQ TAB PO (12:38)
[2017-06-11] MEDS: POTASSIUM CHLORIDE 50 ML IVPB ×2 (13:08→13:51)
[2017-06-11] MEDS: METOCLOPRAMIDE 10 MG TAB PO ×3 (13:43→23:42)
[2017-06-12] MEDS: ALBUTEROL/IPRATROPIUM (NEB) 3 ML AMP HHN ×5 (01:05→23:56)
[2017-06-12] MEDS: D5W-0.45 NACL + KCL 40 MEQ 1,000 ML IV ×3 (02:18→18:05)
[2017-06-12 04:59] LABS: ADD MAN DIFF? NO
[2017-06-12 05:07] LABS: WHITE BLOOD COUNT 6.7 10^3/ul (4.8-10.8)
[2017-06-12 05:07] LABS: BASOPHIL # 0.1 10^3/ul (0.0-0.1); BASOPHILS % 0.7 % (0.0-2.0); EOSINOPHILS # 0.4 10^3/ul (0.0-0.5); EOSINOPHILS % 5.4 % (0.0-7.0); HEMATOCRIT 26.2 % (37.0-47.0); HEMOGLOBIN 8.8 g/dl (12.0-16.0); LYMPHOCYTES % 14.8 % (15.0-51.0); MEAN CORPUSCULAR HEMOGLOBIN 27.3 pg (29.0-33.0); MEAN CORPUSCULAR HGB CONC 33.6 g/dl (32.0-37.0); MEAN CORPUSCULAR VOLUME 81.4 fl (82.0-101.0); MEAN PLATELET VOLUME 11.2 fl (7.4-10.4); MONOCYTE # 1.1 10^3/ul (0.3-0.9); MONOCYTES % 16.9 % (0.0-11.0); NEUTROPHIL # 4.1 10^3/ul (1.6-7.5); NEUTROPHILS % 61.9 % (39.0-77.0); NUCLEATED RED BLOOD CELLS% 0.3 /100WBC (0.0-0.0); PLATELET COUNT 335 10^3/UL (140-415); RED BLOOD COUNT 3.22 10^6/ul (4.20-5.40); RED CELL DISTRIBUTION WIDTH 20.8 % (11.5-14.5)
[2017-06-12] MEDS: PIPER-TAZO 3.375 GM IV (PMX) 50 ML IVPB ×3 (05:15→18:05)
[2017-06-12] MEDS: VANCOMYCIN HCL 250 MG/5ML POSYG PO ×3 (05:16→18:05)
[2017-06-12] MEDS: METOCLOPRAMIDE 10 MG TAB PO ×3 (05:16→18:05)
[2017-06-12 05:39] LABS: ANION GAP 9 (8-16); CARBON DIOXIDE 22 mmol/L (21-31); CHLORIDE 108 mmol/L (97-110); CREATININE 0.55 mg/dl (0.44-1.00); GLUCOSE 81 mg/dl (70-220); POTASSIUM 3.2 mmol/L (3.5-5.1); SODIUM 136 mmol/L (135-144)
[2017-06-12 06:12] LABS: BLOOD UREA NITROGEN < 2 mg/dl (7-20)
[2017-06-12] MEDS: PANTOPRAZOLE 40 MG INJ IV (09:28)
[2017-06-12] MEDS: ENOXAPARIN 40 MG/0.4 ML SYG SC (09:28)
[2017-06-12] MEDS: morphine 4 MG/ML VIAL IV ×2 (11:22→15:07)
[2017-06-13] MEDS: morphine 4 MG/ML VIAL IV ×5 (00:06→22:54)
[2017-06-13] MEDS: VANCOMYCIN HCL 250 MG/5ML POSYG PO ×5 (00:14→18:00)
[2017-06-13] MEDS: PIPER-TAZO 3.375 GM IV (PMX) 50 ML IVPB ×4 (00:14→17:53)
[2017-06-13] MEDS: ALBUTEROL/IPRATROPIUM (NEB) 3 ML AMP HHN ×4 (01:41→20:19)
[2017-06-13] MEDS: METOCLOPRAMIDE 10 MG TAB PO ×4 (05:11→17:53)
[2017-06-13] MEDS: PANTOPRAZOLE 40 MG INJ IV (08:51)
[2017-06-13] MEDS: ENOXAPARIN 40 MG/0.4 ML SYG SC (08:53)
[2017-06-13] MEDS: D5W-0.45 NACL + KCL 40 MEQ 1,000 ML IV ×2 (08:54→20:30)
[2017-06-13 14:04] LABS: ADD MAN DIFF? NO
[2017-06-13 14:06] LABS: BASOPHIL # 0.1 10^3/ul (0.0-0.1); BASOPHILS % 0.6 % (0.0-2.0); EOSINOPHILS % 0.4 % (0.0-7.0); HEMATOCRIT 34.1 % (37.0-47.0); HEMOGLOBIN 11.1 g/dl (12.0-16.0); LYMPHOCYTES % 10.1 % (15.0-51.0); MEAN CORPUSCULAR HEMOGLOBIN 27.2 pg (29.0-33.0); MEAN CORPUSCULAR HGB CONC 32.6 g/dl (32.0-37.0); MEAN CORPUSCULAR VOLUME 83.6 fl (82.0-101.0); MEAN PLATELET VOLUME 11.2 fl (7.4-10.4); MONOCYTE # 1.1 10^3/ul (0.3-0.9); MONOCYTES % 11.4 % (0.0-11.0); NEUTROPHIL # 7.3 10^3/ul (1.6-7.5); NEUTROPHILS % 77.3 % (39.0-77.0); NUCLEATED RED BLOOD CELLS% 0.2 /100WBC (0.0-0.0); PLATELET COUNT 374 10^3/UL (140-415); RED BLOOD COUNT 4.08 10^6/ul (4.20-5.40); RED CELL DISTRIBUTION WIDTH 21.8 % (11.5-14.5)
[2017-06-13 14:06] LABS: WHITE BLOOD COUNT 9.5 10^3/ul (4.8-10.8)
[2017-06-13 14:23] LABS: ANION GAP 13 (8-16); BLOOD UREA NITROGEN < 2 mg/dl (7-20); CALCIUM 8.2 mg/dl (8.4-10.2); CARBON DIOXIDE 22 mmol/L (21-31); CHLORIDE 106 mmol/L (97-110); CREATININE 0.52 mg/dl (0.44-1.00); GLUCOSE 112 mg/dl (70-220); POTASSIUM 3.8 mmol/L (3.5-5.1); SODIUM 137 mmol/L (135-144)
[2017-06-13] MEDS: MIRTAZAPINE 15 MG TAB PO (20:29)
[2017-06-14] MEDS: METOCLOPRAMIDE 10 MG TAB PO ×4 (01:04→17:22)
[2017-06-14] MEDS: PIPER-TAZO 3.375 GM IV (PMX) 50 ML IVPB ×4 (01:05→17:21)
[2017-06-14] MEDS: VANCOMYCIN HCL 250 MG/5ML POSYG PO ×4 (01:05→17:25)
[2017-06-14] MEDS: morphine 4 MG/ML VIAL IV ×6 (01:06→21:10)
[2017-06-14] MEDS: ALBUTEROL/IPRATROPIUM (NEB) 3 ML AMP HHN ×4 (02:27→20:29)
[2017-06-14] MEDS: D5W-0.45 NACL + KCL 40 MEQ 1,000 ML IV ×2 (05:11→17:59)
[2017-06-14 06:42] LABS: ADD MAN DIFF? NO
[2017-06-14 06:56] LABS: WHITE BLOOD COUNT 8.1 10^3/ul (4.8-10.8)
[2017-06-14 06:56] LABS: BASOPHIL # 0.1 10^3/ul (0.0-0.1); BASOPHILS % 0.6 % (0.0-2.0); EOSINOPHILS # 0.2 10^3/ul (0.0-0.5); EOSINOPHILS % 2.5 % (0.0-7.0); HEMATOCRIT 28.3 % (37.0-47.0); HEMOGLOBIN 9.3 g/dl (12.0-16.0); LYMPHOCYTES # 0.8 10^3/ul (0.8-2.9); LYMPHOCYTES % 10.3 % (15.0-51.0); MEAN CORPUSCULAR HEMOGLOBIN 27.4 pg (29.0-33.0); MEAN CORPUSCULAR HGB CONC 32.9 g/dl (32.0-37.0); MEAN CORPUSCULAR VOLUME 83.2 fl (82.0-101.0); MEAN PLATELET VOLUME 11.7 fl (7.4-10.4); MONOCYTES % 12.1 % (0.0-11.0); NEUTROPHILS % 74.3 % (39.0-77.0); PLATELET COUNT 329 10^3/UL (140-415)
[2017-06-14 07:10] LABS: ANION GAP 11 (8-16); CARBON DIOXIDE 23 mmol/L (21-31); CHLORIDE 107 mmol/L (97-110); GLUCOSE 111 mg/dl (70-220); POTASSIUM 3.6 mmol/L (3.5-5.1); SODIUM 137 mmol/L (135-144)
[2017-06-14 07:15] LABS: BLOOD UREA NITROGEN < 2 mg/dl (7-20)
[2017-06-14] MEDS: ENOXAPARIN 40 MG/0.4 ML SYG SC (09:49)
[2017-06-14] MEDS: PANTOPRAZOLE 40 MG INJ IV (09:49)
[2017-06-14] MEDS: BACLOFEN 10 MG TAB PO (09:57)
[2017-06-14] MEDS: LORAZEPAM 2 MG INJ IV ×2 (17:31→23:13)
[2017-06-14] MEDS: MIRTAZAPINE 15 MG TAB PO ×2 (21:00→21:10)
[2017-06-15] MEDS: PIPER-TAZO 3.375 GM IV (PMX) 50 ML IVPB ×4 (00:14→17:33)
[2017-06-15] MEDS: VANCOMYCIN HCL 250 MG/5ML POSYG PO ×5 (00:20→17:33)
[2017-06-15] MEDS: METOCLOPRAMIDE 10 MG TAB PO ×5 (00:20→17:33)
[2017-06-15] MEDS: ALBUTEROL/IPRATROPIUM (NEB) 3 ML AMP HHN ×4 (01:23→20:48)
[2017-06-15] MEDS: morphine 4 MG/ML VIAL IV ×2 (02:59→11:27)
[2017-06-15] MEDS: D5W-0.45 NACL + KCL 40 MEQ 1,000 ML IV ×3 (03:30→17:37)
[2017-06-15] MEDS: LORAZEPAM 2 MG INJ IV ×2 (05:44→22:23)
[2017-06-15] MEDS: PANTOPRAZOLE 40 MG INJ IV (09:51)
[2017-06-15] MEDS: ENOXAPARIN 40 MG/0.4 ML SYG SC (09:55)
[2017-06-15] MEDS: MIRTAZAPINE 15 MG TAB PO (20:21)
[2017-06-16] MEDS: PIPER-TAZO 3.375 GM IV (PMX) 50 ML IVPB ×3 (01:15→12:11)
[2017-06-16] MEDS: morphine 4 MG/ML VIAL IV (01:15)
[2017-06-16] MEDS: VANCOMYCIN HCL 250 MG/5ML POSYG PO ×4 (01:16→18:03)
[2017-06-16] MEDS: METOCLOPRAMIDE 10 MG TAB PO ×4 (01:17→18:03)
[2017-06-16] MEDS: ALBUTEROL/IPRATROPIUM (NEB) 3 ML AMP HHN ×4 (01:33→19:39)
[2017-06-16] MEDS: PANTOPRAZOLE 40 MG INJ IV (09:12)
[2017-06-16] MEDS: ENOXAPARIN 40 MG/0.4 ML SYG SC (09:12)
[2017-06-16 10:05] LABS: ADD MAN DIFF? NO
[2017-06-16 10:07] LABS: ABNORMAL IP MESSAGE 1; BASOPHIL # 0.1 10^3/ul (0.0-0.1); BASOPHILS % 1.1 % (0.0-2.0); EOSINOPHILS # 0.1 10^3/ul (0.0-0.5); EOSINOPHILS % 1.9 % (0.0-7.0); HEMATOCRIT 27.3 % (37.0-47.0); HEMOGLOBIN 9.3 g/dl (12.0-16.0); LYMPHOCYTES # 0.8 10^3/ul (0.8-2.9); LYMPHOCYTES % 10.7 % (15.0-51.0); MEAN CORPUSCULAR HEMOGLOBIN 28.1 pg (29.0-33.0); MEAN CORPUSCULAR HGB CONC 34.1 g/dl (32.0-37.0); MEAN CORPUSCULAR VOLUME 82.5 fl (82.0-101.0); MEAN PLATELET VOLUME 10.5 fl (7.4-10.4); MONOCYTES % 13.2 % (0.0-11.0); NEUTROPHIL # 5.5 10^3/ul (1.6-7.5); NEUTROPHILS % 72.7 % (39.0-77.0); PLATELET COUNT 352 10^3/UL (140-415); RED BLOOD COUNT 3.31 10^6/ul (4.20-5.40); RED CELL DISTRIBUTION WIDTH 22.7 % (11.5-14.5)
[2017-06-16 10:07] LABS: WHITE BLOOD COUNT 7.6 10^3/ul (4.8-10.8)
[2017-06-16 10:08] LABS: POSITIVE DIFF @See below
[2017-06-16 10:33] LABS: ANION GAP 11 (8-16); CALCIUM 8.2 mg/dl (8.4-10.2); CARBON DIOXIDE 24 mmol/L (21-31); CHLORIDE 111 mmol/L (97-110); CREATININE 0.55 mg/dl (0.44-1.00); GLUCOSE 87 mg/dl (70-220); POTASSIUM 3.1 mmol/L (3.5-5.1); SODIUM 143 mmol/L (135-144)
[2017-06-16 10:55] LABS: BLOOD UREA NITROGEN < 2 mg/dl (7-20)
[2017-06-16] MEDS: POTASSIUM CHLORIDE 50 ML IVPB ×4 (14:45→21:12)
[2017-06-16] MEDS: D5W-0.45 NACL + KCL 40 MEQ 1,000 ML IV (18:04)
[2017-06-16] MEDS: MIRTAZAPINE 15 MG TAB PO ×2 (21:00→21:13)
[2017-06-16] MEDS: LORAZEPAM 2 MG INJ IV (21:13)
[2017-06-17] MEDS: PIPER-TAZO 3.375 GM IV (PMX) 100 ML IVPB ×4 (00:40→18:48)
[2017-06-17] MEDS: METOCLOPRAMIDE 10 MG TAB PO ×5 (00:40→18:00)
[2017-06-17] MEDS: VANCOMYCIN HCL 250 MG/5ML POSYG PO ×5 (00:40→18:49)
[2017-06-17] MEDS: D5W-0.45 NACL + KCL 40 MEQ 1,000 ML IV ×2 (00:54→18:49)
[2017-06-17] MEDS: morphine 4 MG/ML VIAL IV ×3 (01:44→19:09)
[2017-06-17] MEDS: ALBUTEROL/IPRATROPIUM (NEB) 3 ML AMP HHN ×5 (02:00→19:53)
[2017-06-17 06:43] LABS: ANION GAP 13 (8-16); CALCIUM 7.8 mg/dl (8.4-10.2); CARBON DIOXIDE 23 mmol/L (21-31); CHLORIDE 111 mmol/L (97-110); CREATININE 0.57 mg/dl (0.44-1.00); GLUCOSE 91 mg/dl (70-220); POTASSIUM 3.5 mmol/L (3.5-5.1); SODIUM 143 mmol/L (135-144)
[2017-06-17 06:46] LABS: BLOOD UREA NITROGEN < 2 mg/dl (7-20)
[2017-06-17] MEDS: ENOXAPARIN 40 MG/0.4 ML SYG SC (10:13)
[2017-06-17] MEDS: PANTOPRAZOLE (EC) 40 MG TAB PO (10:14)
[2017-06-17] MEDS: SENNA TAB PO (20:25)
[2017-06-17] MEDS: MIRTAZAPINE 15 MG TAB PO ×2 (20:25→20:31)
[2017-06-17] MEDS: LORAZEPAM 2 MG INJ IV (20:42)
[2017-06-18] MEDS: METOCLOPRAMIDE 10 MG TAB PO ×5 (00:03→17:31)
[2017-06-18] MEDS: VANCOMYCIN HCL 250 MG/5ML POSYG PO ×5 (00:03→17:31)
[2017-06-18] MEDS: morphine 4 MG/ML VIAL IV ×4 (00:04→18:41)
[2017-06-18] MEDS: ALBUTEROL/IPRATROPIUM (NEB) 3 ML AMP HHN ×4 (01:20→19:24)
[2017-06-18 06:33] LABS: ADD MAN DIFF? NO
[2017-06-18 06:36] LABS: ABNORMAL IP MESSAGE 1; BASOPHIL # 0.1 10^3/ul (0.0-0.1); BASOPHILS % 1.3 % (0.0-2.0); EOSINOPHILS # 0.3 10^3/ul (0.0-0.5); EOSINOPHILS % 5.1 % (0.0-7.0); HEMATOCRIT 29.4 % (37.0-47.0); HEMOGLOBIN 9.9 g/dl (12.0-16.0); LYMPHOCYTES # 0.8 10^3/ul (0.8-2.9); LYMPHOCYTES % 13.7 % (15.0-51.0); MEAN CORPUSCULAR HEMOGLOBIN 27.7 pg (29.0-33.0); MEAN CORPUSCULAR HGB CONC 33.7 g/dl (32.0-37.0); MEAN CORPUSCULAR VOLUME 82.4 fl (82.0-101.0); MEAN PLATELET VOLUME 11.5 fl (7.4-10.4); MONOCYTES % 16.8 % (0.0-11.0); NEUTROPHIL # 3.9 10^3/ul (1.6-7.5); NEUTROPHILS % 62.8 % (39.0-77.0); NUCLEATED RED BLOOD CELLS # 0.1 10^3/ul (0.0-0.0); PLATELET COUNT 383 10^3/UL (140-415); RED BLOOD COUNT 3.57 10^6/ul (4.20-5.40); RED CELL DISTRIBUTION WIDTH 24.3 % (11.5-14.5)
[2017-06-18 06:36] LABS: WHITE BLOOD COUNT 6.1 10^3/ul (4.8-10.8)
[2017-06-18 06:50] LABS: POSITIVE DIFF @See below
[2017-06-18 07:15] LABS: ANION GAP 10 (8-16); CALCIUM 8.1 mg/dl (8.4-10.2); CARBON DIOXIDE 24 mmol/L (21-31); CHLORIDE 110 mmol/L (97-110); CREATININE 0.54 mg/dl (0.44-1.00); GLUCOSE 86 mg/dl (70-220); POTASSIUM 3.4 mmol/L (3.5-5.1); SODIUM 141 mmol/L (135-144)
[2017-06-18 07:17] LABS: BLOOD UREA NITROGEN < 2 mg/dl (7-20)
[2017-06-18] MEDS: ENOXAPARIN 40 MG/0.4 ML SYG SC (08:51)
[2017-06-18] MEDS: PANTOPRAZOLE (EC) 40 MG TAB PO (08:53)
[2017-06-18] MEDS: D5W-0.45 NACL + KCL 40 MEQ 1,000 ML IV (11:58)
[2017-06-18] MEDS: MIRTAZAPINE 15 MG TAB PO (21:02)
[2017-06-19] MEDS: ALBUTEROL/IPRATROPIUM (NEB) 3 ML AMP HHN ×4 (01:09→20:09)
[2017-06-19] MEDS: morphine 4 MG/ML VIAL IV ×3 (02:28→23:05)
[2017-06-19] MEDS: METOCLOPRAMIDE 10 MG TAB PO ×4 (06:00→17:44)
[2017-06-19] MEDS: D5W-0.45 NACL + KCL 40 MEQ 1,000 ML IV ×3 (06:28→23:06)
[2017-06-19 09:10] LABS: ANION GAP 13 (8-16); BLOOD UREA NITROGEN < 2 mg/dl (7-20); CALCIUM 7.9 mg/dl (8.4-10.2); CARBON DIOXIDE 22 mmol/L (21-31); CHLORIDE 107 mmol/L (97-110); CREATININE 0.52 mg/dl (0.44-1.00); GLUCOSE 79 mg/dl (70-220); POTASSIUM 3.7 mmol/L (3.5-5.1); SODIUM 138 mmol/L (135-144)
[2017-06-19] MEDS: ENOXAPARIN 40 MG/0.4 ML SYG SC (09:27)
[2017-06-19] MEDS: PANTOPRAZOLE (EC) 40 MG TAB PO (09:27)
[2017-06-19] MEDS: MIRTAZAPINE 15 MG TAB PO (20:31)
[2017-06-19] MEDS: SODIUM HYPOCHLORITE 0.125% 473 ML BTL IRR (20:31)
[2017-06-20] MEDS: METOCLOPRAMIDE 10 MG TAB PO ×5 (00:01→23:53)
[2017-06-20] MEDS: ALBUTEROL/IPRATROPIUM (NEB) 3 ML AMP HHN ×4 (01:42→20:59)
[2017-06-20] MEDS: morphine 4 MG/ML VIAL IV ×3 (01:59→22:15)
[2017-06-20] MEDS: D5W-0.45 NACL + KCL 40 MEQ 1,000 ML IV ×2 (07:53→14:59)
[2017-06-20] MEDS: PANTOPRAZOLE (EC) 40 MG TAB PO (09:15)
[2017-06-20] MEDS: ENOXAPARIN 40 MG/0.4 ML SYG SC (09:16)
[2017-06-20] MEDS: BACLOFEN 10 MG TAB PO (09:32)
[2017-06-20] MEDS: SODIUM HYPOCHLORITE 0.125% 473 ML BTL IRR ×2 (09:33→21:53)
[2017-06-20] MEDS: MIRTAZAPINE 15 MG TAB PO (21:52)
[2017-06-21] MEDS: ALBUTEROL/IPRATROPIUM (NEB) 3 ML AMP HHN ×4 (01:06→19:41)
[2017-06-21] MEDS: METOCLOPRAMIDE 10 MG TAB PO ×3 (05:45→18:00)
[2017-06-21] MEDS: morphine 4 MG/ML VIAL IV ×4 (05:46→21:19)
[2017-06-21] MEDS: BACLOFEN 10 MG TAB PO (09:26)
[2017-06-21] MEDS: PANTOPRAZOLE (EC) 40 MG TAB PO (09:26)
[2017-06-21] MEDS: ENOXAPARIN 40 MG/0.4 ML SYG SC (09:27)
[2017-06-21] MEDS: SODIUM HYPOCHLORITE 0.125% 473 ML BTL IRR ×2 (09:29→21:24)
[2017-06-21] MEDS: D5W-0.45 NACL + KCL 40 MEQ 1,000 ML IV ×2 (09:35→22:11)
[2017-06-21] MEDS: MIRTAZAPINE 15 MG TAB PO (21:24)
[2017-06-22] MEDS: METOCLOPRAMIDE 10 MG TAB PO ×4 (00:10→17:30)
[2017-06-22] MEDS: ALBUTEROL/IPRATROPIUM (NEB) 3 ML AMP HHN ×4 (01:58→20:51)
[2017-06-22] MEDS: morphine 4 MG/ML VIAL IV ×3 (05:04→21:55)
[2017-06-22] MEDS: PANTOPRAZOLE (EC) 40 MG TAB PO (08:53)
[2017-06-22] MEDS: ENOXAPARIN 40 MG/0.4 ML SYG SC (08:53)
[2017-06-22] MEDS: SODIUM HYPOCHLORITE 0.125% 473 ML BTL IRR ×2 (12:11→21:56)
[2017-06-22] MEDS: D5W-0.45 NACL + KCL 40 MEQ 1,000 ML IV ×2 (12:11→22:11)
[2017-06-22] MEDS: MIRTAZAPINE 15 MG TAB PO (21:56)
[2017-06-23] MEDS: METOCLOPRAMIDE 10 MG TAB PO ×5 (01:01→23:16)
[2017-06-23] MEDS: ALBUTEROL/IPRATROPIUM (NEB) 3 ML AMP HHN ×4 (01:48→20:19)
[2017-06-23 05:36] LABS: ADD MAN DIFF? NO
[2017-06-23 05:56] LABS: ABNORMAL IP MESSAGE 1; BASOPHIL # 0.1 10^3/ul (0.0-0.1); BASOPHILS % 0.6 % (0.0-2.0); EOSINOPHILS # 0.1 10^3/ul (0.0-0.5); EOSINOPHILS % 1.8 % (0.0-7.0); HEMATOCRIT 29.6 % (37.0-47.0); HEMOGLOBIN 10.2 g/dl (12.0-16.0); LYMPHOCYTES # 1.1 10^3/ul (0.8-2.9); LYMPHOCYTES % 13.7 % (15.0-51.0); MEAN CORPUSCULAR HEMOGLOBIN 28.6 pg (29.0-33.0); MEAN CORPUSCULAR HGB CONC 34.5 g/dl (32.0-37.0); MEAN CORPUSCULAR VOLUME 82.9 fl (82.0-101.0); MEAN PLATELET VOLUME 11.8 fl (7.4-10.4); MONOCYTE # 1.2 10^3/ul (0.3-0.9); MONOCYTES % 14.8 % (0.0-11.0); NEUTROPHIL # 5.3 10^3/ul (1.6-7.5); NEUTROPHILS % 68.6 % (39.0-77.0); NUCLEATED RED BLOOD CELLS% 0.5 /100WBC (0.0-0.0); PLATELET COUNT 238 10^3/UL (140-415); RED BLOOD COUNT 3.57 10^6/ul (4.20-5.40); RED CELL DISTRIBUTION WIDTH 24.7 % (11.5-14.5)
[2017-06-23 05:56] LABS: WHITE BLOOD COUNT 7.8 10^3/ul (4.8-10.8)
[2017-06-23] MEDS: morphine 4 MG/ML VIAL IV ×2 (06:05→19:08)
[2017-06-23 06:15] LABS: POSITIVE DIFF @See below
[2017-06-23 06:31] LABS: ANION GAP 9 (8-16); BLOOD UREA NITROGEN 3 mg/dl (7-20); CARBON DIOXIDE 27 mmol/L (21-31); CHLORIDE 105 mmol/L (97-110); CREATININE 0.58 mg/dl (0.44-1.00); GLUCOSE 84 mg/dl (70-220); POTASSIUM 4.4 mmol/L (3.5-5.1); SODIUM 137 mmol/L (135-144)
[2017-06-23] MEDS: SODIUM HYPOCHLORITE 0.125% 473 ML BTL IRR ×3 (09:00→21:00)
[2017-06-23] MEDS: PANTOPRAZOLE (EC) 40 MG TAB PO (09:04)
[2017-06-23] MEDS: ENOXAPARIN 40 MG/0.4 ML SYG SC (09:06)
[2017-06-23] MEDS: D5W-0.45 NACL + KCL 40 MEQ 1,000 ML IV ×2 (17:17→22:11)
[2017-06-23] MEDS: MIRTAZAPINE 15 MG TAB PO (23:16)
[2017-06-24] MEDS: ALBUTEROL/IPRATROPIUM (NEB) 3 ML AMP HHN ×4 (02:00→19:59)
[2017-06-24] MEDS: morphine 4 MG/ML VIAL IV ×4 (02:57→21:58)
[2017-06-24] MEDS: METOCLOPRAMIDE 10 MG TAB PO ×5 (06:00→17:38)
[2017-06-24] MEDS: PANTOPRAZOLE (EC) 40 MG TAB PO (08:41)
[2017-06-24] MEDS: ENOXAPARIN 40 MG/0.4 ML SYG SC (08:44)
[2017-06-24] MEDS: SODIUM HYPOCHLORITE 0.125% 473 ML BTL IRR ×2 (08:54→21:58)
[2017-06-24] MEDS: D5W-0.45 NACL + KCL 40 MEQ 1,000 ML IV ×2 (16:32→22:11)
[2017-06-24] MEDS: MIRTAZAPINE 15 MG TAB PO (21:58)
[2017-06-25] MEDS: LORAZEPAM 2 MG INJ IV (00:27)
[2017-06-25] MEDS: METOCLOPRAMIDE 10 MG TAB PO ×4 (00:27→18:00)
[2017-06-25] MEDS: ALBUTEROL/IPRATROPIUM (NEB) 3 ML AMP HHN ×4 (02:04→19:47)
[2017-06-25] MEDS: morphine 4 MG/ML VIAL IV ×4 (08:03→23:16)
[2017-06-25] MEDS: PANTOPRAZOLE (EC) 40 MG TAB PO (10:10)
[2017-06-25] MEDS: SODIUM HYPOCHLORITE 0.125% 473 ML BTL IRR ×2 (10:10→21:03)
[2017-06-25] MEDS: ENOXAPARIN 40 MG/0.4 ML SYG SC (10:14)
[2017-06-25] MEDS: MIRTAZAPINE 15 MG TAB PO (21:03)
[2017-06-25] MEDS: D5W-0.45 NACL + KCL 40 MEQ 1,000 ML IV (22:11)
[2017-06-26] MEDS: LORAZEPAM 2 MG INJ IV (00:35)
[2017-06-26] MEDS: ALBUTEROL/IPRATROPIUM (NEB) 3 ML AMP HHN ×4 (02:00→19:46)
[2017-06-26] MEDS: METOCLOPRAMIDE 10 MG TAB PO ×4 (05:44→18:00)
[2017-06-26] MEDS: morphine 4 MG/ML VIAL IV ×2 (05:48→11:28)
[2017-06-26 08:11] LABS: ANION GAP 11 (8-16); BLOOD UREA NITROGEN 7 mg/dl (7-20); CALCIUM 8.2 mg/dl (8.4-10.2); CARBON DIOXIDE 25 mmol/L (21-31); CHLORIDE 107 mmol/L (97-110); CREATININE 0.61 mg/dl (0.44-1.00); GLUCOSE 85 mg/dl (70-220); POTASSIUM 3.9 mmol/L (3.5-5.1); SODIUM 139 mmol/L (135-144)
[2017-06-26] MEDS: PANTOPRAZOLE (EC) 40 MG TAB PO (09:38)
[2017-06-26] MEDS: SODIUM HYPOCHLORITE 0.125% 473 ML BTL IRR ×2 (09:39→21:13)
[2017-06-26] MEDS: ENOXAPARIN 40 MG/0.4 ML SYG SC (09:40)
[2017-06-26] MEDS: D5W-0.45 NACL + KCL 40 MEQ 1,000 ML IV ×2 (13:40→22:11)
[2017-06-26] MEDS: MIRTAZAPINE 15 MG TAB PO (20:11)
[2017-06-27] MEDS: METOCLOPRAMIDE 10 MG TAB PO ×2 (00:34→06:18)
[2017-06-27] MEDS: ALBUTEROL/IPRATROPIUM (NEB) 3 ML AMP HHN ×2 (02:00→07:28)
[2017-06-27] MEDS: morphine 4 MG/ML VIAL IV ×2 (02:38→08:50)
[2017-06-27] MEDS: PANTOPRAZOLE (EC) 40 MG TAB PO (08:50)
[2017-06-27] MEDS: SODIUM HYPOCHLORITE 0.125% 473 ML BTL IRR (08:50)
[2017-06-27] MEDS: ENOXAPARIN 40 MG/0.4 ML SYG SC (08:51)
== END 2017-06-27 09:30 | disposition hospice, inpatient (51) | DRG 734 ==
LOC: MS2 22:48 → MS1 05-04 09:01 → ICU 05-10 22:10 → PP2 05-24 13:43 → MS4 05-16 14:44 → E/R 15:10 → MS1 05-10 22:10 → REC 05-10 22:11
PROC: 07TC0ZZ Resection of Pelvis Lymphatic, Open Approach (ICD-10-PCS; principal; 2017-05-10 09:30)
PROC: 0UT20ZZ Resection of Bilateral Ovaries, Open Approach (ICD-10-PCS; 2017-05-10 09:30)
PROC: 0UT70ZZ Resection of Bilateral Fallopian Tubes, Open Approach (ICD-10-PCS; 2017-05-10 09:30)
PROC: 0UT90ZZ Resection of Uterus, Open Approach (ICD-10-PCS; 2017-05-10 09:30)
PROC: 0DBN0ZZ Excision of Sigmoid Colon, Open Approach (ICD-10-PCS; 2017-05-10 09:30)
PROC: 0DBP0ZZ Excision of Rectum, Open Approach (ICD-10-PCS; 2017-05-10 09:30)
PROC: 0DNE0ZZ Release Large Intestine, Open Approach (ICD-10-PCS; 2017-05-10 09:30)
PROC: 07TP0ZZ Resection of Spleen, Open Approach (ICD-10-PCS; 2017-05-10 09:30)
PROC: 0BBT0ZZ Excision of Diaphragm, Open Approach (ICD-10-PCS; 2017-05-10 09:30)
PROC: 0D5V0ZZ Destruction of Mesentery, Open Approach (ICD-10-PCS; 2017-05-10 09:30)
PROC: 0TS80ZZ Reposition Bilateral Ureters, Open Approach (ICD-10-PCS; 2017-05-10 09:30)
PROC: 0DBU0ZZ Excision of Omentum, Open Approach (ICD-10-PCS; 2017-05-10 09:30)
PROC: 0WHG03Z Insertion of Infusion Device into Peritoneal Cavity, Open Approach (ICD-10-PCS; 2017-05-10 09:30)
PROC: 0DBW0ZZ Excision of Peritoneum, Open Approach (ICD-10-PCS; 2017-05-10 09:30)
PROC: 0W9G0ZZ Drainage of Peritoneal Cavity, Open Approach (ICD-10-PCS; 2017-05-10 09:30)
PROC: 0WPG03Z Removal of Infusion Device from Peritoneal Cavity, Open Approach (ICD-10-PCS; 2017-05-10 10:24)
PROC: 4A133R1 Monitoring of Arterial Saturation, Peripheral, Percutaneous Approach (ICD-10-PCS; 2017-05-10 10:24)
PROC: 30233N1 Transfusion of Nonautologous Red Blood Cells into Peripheral Vein, Percutaneous Approach (ICD-10-PCS; 2017-05-10 10:24)
PROC: 02HV33Z Insertion of Infusion Device into Superior Vena Cava, Percutaneous Approach (ICD-10-PCS; 2017-05-10 10:24)
PROC: B54NZZA Ultrasonography of Left Upper Extremity Veins, Guidance (ICD-10-PCS; 2017-05-10 10:24)
DX: C56.9 Malignant neoplasm of unspecified ovary (principal); J95.821 Acute postprocedural respiratory failure; J90 Pleural effusion, not elsewhere classified; A04.72 Enterocolitis due to Clostridium difficile, not specified as recurrent; E46 Unspecified protein-calorie malnutrition; C78.6 Secondary malignant neoplasm of retroperitoneum and peritoneum; R18.8 Other ascites; L03.311 Cellulitis of abdominal wall; N13.4 Hydroureter; T82.7XXA Infection and inflammatory reaction due to other cardiac and vascular devices, implants and grafts, initial encounter; T81.4XXA Infection following a procedure, initial encounter; J98.11 Atelectasis; K44.9 Diaphragmatic hernia without obstruction or gangrene; D64.9 Anemia, unspecified; E78.00 Pure hypercholesterolemia, unspecified; I95.81 Postprocedural hypotension; E87.6 Hypokalemia; Z66 Do not resuscitate; Z51.5 Encounter for palliative care; R41.0 Disorientation, unspecified; Z80.41 Family history of malignant neoplasm of ovary; Z87.891 Personal history of nicotine dependence; E66.9 Obesity, unspecified; B96.5 Pseudomonas (aeruginosa) (mallei) (pseudomallei) as the cause of diseases classified elsewhere; B95.2 Enterococcus as the cause of diseases classified elsewhere; N80.5 Endometriosis of intestine; N80.3 Endometriosis of pelvic peritoneum; N80.8 Other endometriosis; Y92.234 Operating room of hospital as the place of occurrence of the external cause; Y83.6 Removal of other organ (partial) (total) as the cause of abnormal reaction of the patient, or of later complication, without mention of misadventure at the time of the procedure
CPT/HCPCS: 36415; 36430; 36569; 36600; 71010; 74176; 74177; 76937; 80048; 80053; 80202; 81001; 82330; 82803; 82962; 83605; 83690; 83735; 84100; 85025; 85049; 85610; 85670; 85730; 86850; 86900; 86901; 86920; 87070; 87075; 87081; 87086; 88305; 88307; 93005; 93306; 93970; 94002; 94003; 94640; 94664; 94770; 96374; 96375; 97110; 97116; 97163; 97530; 99285-25; J1940